=== PATIENT | female | born 1950 | race Caucasian/White ===

== ENCOUNTER 2017-07-02 11:24 | Inpatient (IN) | payer MEDICARE, OTHER ==
[2017-07-02] MEDS ORDERED: Sodium Chloride 0.9% 10 ML Syringe FLUSH PRN (11:50)
[2017-07-02] MEDS ORDERED: Ondansetron 4 MG/2 ML SDV IVPUSH ONE (11:50)
--- NOTE | 2017-07-02 11:53 | EDM.PDOC ---
ED HPI GENERAL MEDICAL PROBLEM - General Chief Complaint: Gastrointestinal Problem Stated Complaint: POST SURGICAL COMPLICATIONS/NAUSEA Time Seen by Provider: 07/02/17 11:40 Source of Information: Reports: Patient History Limitations: Reports: No Limitations - History of Present Illness INITIAL COMMENTS - FREE TEXT/NARRATIVE: Patient is a 66-year-old female who presents ED complaining of nausea and vomiting since 5:00 this morning. Patient awoke abruptly with these symptoms. She's also developed chills with no documented fever. Generalized headache described as a tension-like mild in nature. States she recently had robotic- assisted sacrocolpoplexy this past Friday. States for 3 days has had little to eat. Was discharged home yesterday 1045 am. States they have been in contact with surgeon's [employer] PA-C and was started on Zofran ODT advised to take one tab and if not better take additional tab. Patient has done so but vomited up. She Has tried to eat crackers and soup only to vomited up. She went to no discomfort while at rest. She has felt dizzy and lightheaded at times it resolves quickly. Patient has felt constipated since being discharged. Although she has not been eating much for the past 3 days. Hasn't taken MiraLAX with passing of stool and also gas. No blood present. She has no pain with urination. No chest pain, shortness of breath, cough, sore throat, pain to her lower extremities, or any additional complaints. Patient does not go to the doctor routine basis. Has no additional past medical history. Surgical history: Partial hysterectomy many many years ago. She does not smoke or utilize any recreational drugs. Alcohol use sparingly. Lower Abdominal Pain Score (Numeric/FACES): 3 - Related Data Allergies Allergy/AdvReac Type Severity Reaction Status Date / Time No Known Allergies Allergy Verified 07/02/17 11:39 Home Meds: Home Meds Ondansetron [Zofran ODT] 4 mg PO Q6H PRN 07/02/17 [History] ED ROS GENERAL - Review of Systems Review Of Systems: ROS reveals no pertinent complaints other than HPI. ED EXAM, GI/ABD - Physical Exam Exam: See Below Exam Limited By: No Limitations General Appearance: Alert, WD/WN, No Apparent Distress Ears: Hearing Grossly Normal Nose: Normal Inspection Throat/Mouth: Normal Voice, No Airway Compromise Head: Atraumatic, Normocephalic Neck: Normal Inspection, Supple Respiratory/Chest: No Respiratory Distress, Lungs Clear, Normal Breath Sounds, No Accessory Muscle Use, Chest Non-Tender Cardiovascular: Normal Peripheral Pulses, Regular Rate, Rhythm, No Murmur GI/Abdominal Exam: Normal Bowel Sounds, Soft, No Organomegaly, No Distention, Other (Tenderness to the right lower quadrant where apparent abdominal hernia Area is quite hard, tender to touch since surgery. ) Back Exam: Normal Inspection. No: CVA Tenderness (L), CVA Tenderness (R) Extremities: Normal Range of Motion, Non-Tender, No Pedal Edema, Normal Capillary Refill Neurological: Alert, Oriented, CN II-XII Intact, Normal Cognition, No Motor/ Sensory Deficits Psychiatric: Normal Affect, Normal Mood Skin Exam: Warm, Dry, Intact (5 port sites to the abdomen approxiamted well with dermabond present. NO swelling, redness, and or drainage present. ) Course - Vital Signs Last Recorded V/S: Last Vital Signs Temp 100.4 F 07/02/17 16:50 Pulse 102 H 07/02/17 16:50 Resp 20 07/02/17 16:50 BP 180/97 H 07/02/17 16:50 Pulse Ox 93 L 07/02/17 16:50 Orthostatic Blood Pressure [ 138/103 Standing] Orthostatic Blood Pressure [ 152/93 Supine] - Orders/Labs/Meds Orders: Active Orders 24 hr Category Date Time Status Orthostatic Vital Signs [RC] ASDIRECTED Care 07/02/17 11:50 Active Peripheral IV Care [RC] . DIRECTED Care 07/02/17 11:50 Active CULTURE BLOOD [BC] Stat Lab 07/02/17 12:20 Received CULTURE BLOOD [BC] Stat Lab 07/02/17 12:25 Received UA W/MICROSCOPIC [URIN] Stat Lab 07/02/17 14:30 Ordered Sodium Chloride 0.9% [Saline Flush] Med 07/02/17 11:50 Active 10 ml FLUSH ASDIRECTED PRN Blood Culture x2 Reflex Set [OM.PC] Stat Oth 07/02/17 11:50 Ordered NG [Nasogastric Orogastric Tube Insertion] [OM.PC] Oth 07/02/17 16:49 Ordered Routine Peripheral IV Insertion Adult [OM.PC] Routine Oth 07/02/17 11:50 Ordered Medication Orders Sodium Chloride (Saline Flush) 10 ml FLUSH ASDIRECTED PRN PRN Reason: Keep Vein Open Last Admin: 07/02/17 12:02 Dose: 10 ml Labs: Laboratory Tests 07/02/17 07/02/17 07/02/17 Range/Units 11:50 11:50 12:20 WBC 11.45 H (3.98-10.04) K/mm3 RBC 4.50 (3.98-5.22) M/mm3 Hgb 13.1 (11.2-15.7) gm/L Hct 40.7 (34.1-44.9) % MCV 90.4 (79.4-94.8) fl MCH 29.1 (25.6-32.2) pg MCHC 32.2 (32.2-35.5) g/dl RDW Std Deviation 44.0 (36.4-46.3) fL Plt Count 245 (182-369) K/mm3 MPV 12.2 (9.4-12.3) fl Neutrophils % (Manual) 76 H (40-60) % Band Neutrophils % 0 (0-10) % Lymphocytes % (Manual) 16 L (20-40) % Atypical Lymphs % 0 % Monocytes % (Manual) 8 (2-10) % Eosinophils % (Manual) 0 L (0.7-5.8) % Basophils % (Manual) 0 L (0.1-1.2) Platelet Estimate Adequate Microcytosis 2+ moderate RBC Morph Comment Abnormal Sodium 137 (136-145) mEq/L Potassium 3.5 (3.5-5.1) mEq/L Chloride 99 (98-107) mEq/L Carbon Dioxide 26 (21-32) mEq/L Anion Gap 15.5 H (5-15) BUN 17 (7-18) mg/dL Creatinine 0.8 (0.55-1.02) mg/dL Est Cr Clr Drug Dosing 60.99 mL/min Estimated GFR (MDRD) > 60 (>60) mL/min BUN/Creatinine Ratio 21.3 H (14-18) Glucose 118 H (80-115) mg/dL Lactic Acid 1.0 (0.4-2.0) mmol/L Calcium 9.0 (8.5-10.1) mg/dL Total Bilirubin 0.7 (0.2-1.0) mg/dL AST 19 (15-37) U/L ALT 17 (14-59) U/L Alkaline Phosphatase 78 (46-116) U/L C-Reactive Protein 4.7 H* (<1.0) mg/dL Total Protein 7.8 (6.4-8.2) g/dl Albumin 3.8 (3.4-5.0) g/dl Globulin 4.0 gm/dL Albumin/Globulin Ratio 1.0 (1-2) Urine Color (Yellow) Urine Appearance (Clear) Urine pH (5.0-8.0) Ur Specific [place] (1.005-1.030) Urine Protein (Negative) Urine Glucose (UA) (Negative) Urine Ketones (Negative) Urine Occult Blood (Negative) Urine Nitrite (Negative) Urine Bilirubin (Negative) Urine Urobilinogen (0.2-1.0) Ur Leukocyte Esterase (Negative) Urine RBC (0-5) /hpf Urine WBC (0-5) /hpf Ur Epithelial Cells (0-5) /hpf Urine Bacteria (FEW) /hpf Urine Mucus (FEW) /hpf 07/02/17 Range/Units 14:30 WBC (3.98-10.04) K/mm3 RBC (3.98-5.22) M/mm3 Hgb (11.2-15.7) gm/L Hct (34.1-44.9) % MCV (79.4-94.8) fl MCH (25.6-32.2) pg MCHC (32.2-35.5) g/dl RDW Std Deviation (36.4-46.3) fL Plt Count (182-369) K/mm3 MPV (9.4-12.3) fl Neutrophils % (Manual) (40-60) % Band Neutrophils % (0-10) % Lymphocytes % (Manual) (20-40) % Atypical Lymphs % % Monocytes % (Manual) (2-10) % Eosinophils % (Manual) (0.7-5.8) % Basophils % (Manual) (0.1-1.2) Platelet Estimate Microcytosis RBC Morph Comment Sodium (136-145) mEq/L Potassium (3.5-5.1) mEq/L Chloride (98-107) mEq/L Carbon Dioxide (21-32) mEq/L Anion Gap (5-15) BUN (7-18) mg/dL Creatinine (0.55-1.02) mg/dL Est Cr Clr Drug Dosing mL/min Estimated GFR (MDRD) (>60) mL/min BUN/Creatinine Ratio (14-18) Glucose (80-115) mg/dL Lactic Acid (0.4-2.0) mmol/L Calcium (8.5-10.1) mg/dL Total Bilirubin (0.2-1.0) mg/dL AST (15-37) U/L ALT (14-59) U/L Alkaline Phosphatase (46-116) U/L C-Reactive Protein (<1.0) mg/dL Total Protein (6.4-8.2) g/dl Albumin (3.4-5.0) g/dl Globulin gm/dL Albumin/Globulin Ratio (1-2) Urine Color Yellow (Yellow) Urine Appearance Clear (Clear) Urine pH 6.5 (5.0-8.0) Ur Specific [place] 1.025 (1.005-1.030) Urine Protein 2+ H (Negative) Urine Glucose (UA) Negative (Negative) Urine Ketones 4+ H (Negative) Urine Occult Blood 1+ H (Negative) Urine Nitrite Negative (Negative) Urine Bilirubin 1+ H (Negative) Urine Urobilinogen 0.2 (0.2-1.0) Ur Leukocyte Esterase Negative (Negative) Urine RBC 0-5 (0-5) /hpf Urine WBC 0-5 (0-5) /hpf Ur Epithelial Cells 0-5 (0-5) /hpf Urine Bacteria Few (FEW) /hpf Urine Mucus Few (FEW) /hpf Meds: Medications Generic Name Dose Route Start Last Admin Trade Name Freq PRN Reason Stop Dose Admin Sodium Chloride 10 ml 07/02/17 11:50 07/02/17 12:02 Saline Flush FLUSH 10 ml ASDIRECTED PRN Administration Keep Vein Open Discontinued Medications Generic Name Dose Route Start Last Admin Trade Name Freq PRN Reason Stop Dose Admin Diatrizoate Meglum/Diatrizoate Sod 90 ml 07/02/17 14:54 07/02/17 15:15 Gastrografin 37% PO 07/02/17 14:55 90 ml ONETIME ONE Administration Diphenhydramine HCl 50 mg 07/02/17 13:15 07/02/17 13:22 Benadryl IVPUSH 07/02/17 13:16 50 mg ONETIME ONE Administration Famotidine 40 mg 07/02/17 16:49 07/02/17 17:00 Pepcid IVPUSH 07/02/17 16:50 40 mg ONETIME ONE Administration Promethazine HCl 25 mg/ Sodium 51 mls @ 100 mls/hr 07/02/17 14:34 07/02/17 14 :55 Chloride IV 07/02/17 15:04 100 mls/hr ONETIME ONE Administration Cefoxitin Sodium 2 gm/ Premix 50 mls @ 100 mls/hr 07/02/17 15:38 07/02/17 15: 45 IV 07/02/17 16:07 100 mls/hr ONETIME ONE Administration Iopamidol 100 ml 07/02/17 14:54 07/02/17 15:15 Isovue-300 (61%) IVPUSH 07/02/17 14:55 100 ml ONETIME ONE Administration Metoclopramide HCl 5 mg 07/02/17 12:32 07/02/17 12:35 Reglan IVPUSH 07/02/17 12:33 5 mg ONETIME ONE Administration Metoclopramide HCl 5 mg 07/02/17 13:15 07/02/17 13:20 Reglan IVPUSH 07/02/17 13:16 5 mg ONETIME ONE Administration Ondansetron HCl 4 mg 07/02/17 11:50 07/02/17 12:01 Zofran IVPUSH 07/02/17 11:51 4 mg ONETIME ONE Administration Pantoprazole Sodium 40 mg 07/02/17 16:03 07/02/17 16:18 Protonix Iv IVPUSH 07/02/17 16:04 40 mg ONETIME ONE Administration Scopolamine 1.5 mg 07/02/17 14:33 Transderm-Scop TOP 07/02/17 14:34 ONETIME ONE Sodium Chloride 10 ml 07/02/17 14:54 07/02/17 15:16 Saline Flush FLUSH 07/02/17 14:55 10 ml ONETIME ONE Administration - Re-Assessments/Exams Free Text/Narrative Re-Assessment/Exam: IV established Zofran 4 mg IVP and NS 1liter. Initial labs and studies include: CBC, chem 14, blood cultures 2, lactic acid, UA, with slight vital signs, CRP, and orthostatic vital signs. Orthostatic vital signs came back positive. 07/02/17 12:32 per nursing staff patient continues to vomit even after receiving the Zofran proximal 20 minutes ago. Ordered Reglan 5 mg IVP. 07/02/17 13:15 per nursing staff patient has just returned back from x-ray and is vomiting again. Ordered Reglan 5 mg IVP and also Benadryl 50 mg IVP. 07/02/17 13:55 Reassessment, n/v have slightly subsided with the above therapies. Continues to have pain to the RLQ. Ordered CT of the abdomen/pelvis with oral and IV contrast. Labs reviewed: Sodium 137, potassium 3.5, AG 15.5, creatinine 0.8, glucose 118, lactic acid 1.0, CRP 4.7, white blood cell count mildly elevated lung 0.45, hemoglobin 13.1, platelet count 245, neutrophil percentage 76 with no left shift. He has not been obtained. 07/02/17 14:36 per nursing staff patient got up to the bathroom and feels nauseated. I ordered Phenergan 25 mg IV via gtt. 07/02/17 15:00 Final interpretation of the abdomen: Soft tissue air within the abdominal and chest wall. This is of uncertain etiology. Single air-fluid level within small bowel believe to be incidental. Other incidental findings. Patient attempted to drink oral contrast but is unable to get all of it down. CT of the abdomen and pelvis is pending. CT abdomen and pelvis impression: Right-sided hernia most likely from oral and location containing a loop of small bowel. Inflammatory changes seen within the hernia and findings are highly suspicious for strain related hernia. Difficult to exclude bowel perforation as there is a small amount of air within the hernia sac in this findings may relate to the subcutaneous air being seen within the abdomen. Fluid within the presacral region. Mildly dilated CBD at 1.4 cigarettes which is uncertain at 2 etiology. Anterior abdominal wall hernia containing fat. Other incidental findings. Order cefoxitin 2 g IV. Discussed labs and CT findings with the patient. She has opted to consult Dr. Li on-call general surgeon for evaluation and treatment. 07/02/[id number] Li he is currently in surgery and will call back. 07/02/[address] Li has arrived to the E.D. and evaluated the patient. Patient will be having surgery here. Dr. Li has called in OR Staff. Departure - Departure Time of Disposition: 15:35 Disposition: DC/Tfer to Critical Access 66 Condition: Fair Clinical Impression: Strangulation of small intestine, Femoral hernia of right side Protein in urine Qualifiers: Proteinuria type: unspecified Qualified Code(s): R80.9 - Proteinuria, unspecified Blood in urine Qualifiers: Hematuria type: unspecified type Qualified Code(s): R31.9 - Hematuria, unspecified - Discharge Information - My Orders Last 24 Hours: My Active Orders 07/02/17 11:50 Orthostatic Vital Signs [RC] ASDIRECTED Peripheral IV Care [RC] . DIRECTED Sodium Chloride 0.9% [Saline Flush] 10 ml FLUSH ASDIRECTED PRN Blood Culture x2 Reflex Set [OM.PC] Stat Peripheral IV Insertion Adult [OM.PC] Routine 07/02/17 12:20 CULTURE BLOOD [BC] Stat 07/02/17 12:25 CULTURE BLOOD [BC] Stat 07/02/17 14:30 UA W/MICROSCOPIC [URIN] Stat 07/02/17 16:49 NG [Nasogastric Orogastric Tube Insertion] [OM.PC] Routine - Assessment/Plan Last 24 Hours: My Active Orders 07/02/17 11:50 Orthostatic Vital Signs [RC] ASDIRECTED Peripheral IV Care [RC] . DIRECTED Sodium Chloride 0.9% [Saline Flush] 10 ml FLUSH ASDIRECTED PRN Blood Culture x2 Reflex Set [OM.PC] Stat Peripheral IV Insertion Adult [OM.PC] Routine 07/02/17 12:20 CULTURE BLOOD [BC] Stat 07/02/17 12:25 CULTURE BLOOD [BC] Stat 07/02/17 14:30 UA W/MICROSCOPIC [URIN] Stat 07/02/17 16:49 NG [Nasogastric Orogastric Tube Insertion] [OM.PC] Routine
[2017-07-02] MEDS ORDERED: Metoclopramide 10 MG/2 ML SDV IVPUSH ONE ×2 (12:32→13:15)
[2017-07-02] MEDS ORDERED: diphenhydrAMINE 50 MG/ML SDV IVPUSH ONE (13:15)
[2017-07-02] MEDS ORDERED: Scopolamine 1.5 MG Transdermal Patch TOP ONE (14:33)
[2017-07-02] MEDS ORDERED: Promethazine 25 MG in Sodium Chloride 0.9% 50 ML IV ONE (14:34)
--- NOTE | 2017-07-02 14:49 | CR ---
Abdomen: Supine and upright views of the abdomen were obtained. Comparison: No previous study. Air-fluid level is seen within a single small bowel loop which is felt at this point to remain within normal limits. Scattered colonic gas is seen. Soft tissue air is noted within the abdominal and chest wall of uncertain etiology. Degenerative change is noted within the spine. No abnormal calcifications are seen. Impression: 1. Soft tissue air within the abdominal and chest wall. This is of uncertain etiology. 2. Single air-fluid level within small bowel believed to be incidental. 3. Other incidental findings. Diagnostic code #3
[2017-07-02] MEDS ORDERED: Diatrizoate Meglumine/Diatrizoate Sodium 37% 120 ML Bottle PO ONE (14:54)
[2017-07-02] MEDS ORDERED: Sodium Chloride 0.9% 10 ML Syringe FLUSH ONE (14:54)
[2017-07-02] MEDS ORDERED: Iopamidol 612 MG/ML 100 ML Bottle IVPUSH ONE (14:54)
--- NOTE | 2017-07-02 15:29 | CT ---
CT abdomen and pelvis Technique: Multiple axial sections were obtained from above the dome of the diaphragm inferiorly through the pubic symphysis. Intravenous contrast was utilized. Oral contrast is seen but contrast mostly remains within the stomach. Delayed images also obtained through the abdomen and pelvis. Comparison: No prior CT exam, previous abdominal and pelvic x-ray performed earlier on the same day (12:49 PM). Findings: Visualized lung bases shows nothing acute. Diffuse subcutaneous air seen throughout the abdomen. Liver shows no focal parenchymal abnormality. Small hiatal hernia is seen with gastroesophageal reflux of contrast. Spleen appears within normal limits. Adrenal glands show no nodule. Kidneys show symmetric contrast enhancement without hydronephrosis or mass. Gallbladder contains no calcified gallstones. Common bile duct is mildly prominent in size at 1.4 cm. etiology of this finding is not seen on the study. Pancreas appears within normal limits. Aorta shows minimal atherosclerotic calcification without aneurysm. Anterior abdominal wall hernia seen which contains fat. Hazy soft tissue densities are seen along both lateral sides of the abdomen as well as anteriorly. Right sided hernia is seen most likely femoral which contains a loop of small bowel. More proximal small bowel appears dilated. Increased density is seen within the fat within the hernia. Findings are suspicious for strangulated hernia. Fluid is seen within the pre-sacral region. Delayed images shows contrast within the ureters and bladder. Bone window settings were reviewed which shows degenerative change primarily at L2-3 and L3-L4 with disc space narrowing and vacuum phenomena. Impression: 1. Right sided hernia most likely femoral in location containing a loop of small bowel. Inflammatory change is seen within the hernia and findings are highly suspicious for strangulated hernia. Difficult to exclude bowel perforation as there is a small amount of air within the hernia sac and this finding may relate to the subcutaneous air being seen within the abdomen. 2. Fluid within the presacral region. 3. Mildly dilated CBD at 1.4 cm which is uncertain as to etiology. 4. Anterior abdominal wall hernia containing fat. 5. Other incidental findings. Diagnostic code #5
[2017-07-02] MEDS ORDERED: cefOXitin 2 GM in Premix Bag 1 BAG IV ONE (15:38)
[2017-07-02] MEDS ORDERED: Pantoprazole 40 MG Vial IVPUSH ONE (16:03)
[2017-07-02] MEDS ORDERED: Famotidine 20 MG/2 ML SDV IVPUSH ONE (16:49)
[2017-07-02] MEDS ORDERED: Sodium Chloride 0.9% 1,000 ML IV SCH (17:45)
[2017-07-02] MEDS ORDERED: Propofol 200 MG/20 ML SDV ONE (17:55)
[2017-07-02] MEDS ORDERED: fentaNYL 250 MCG/5 ML SDV ONE (17:55)
[2017-07-02] MEDS ORDERED: Midazolam 1 MG/ML 2 ML SDV ONE (17:55)
[2017-07-02] MEDS ORDERED: Succinylcholine/Normal Saline 100 MG/5 ML Syringe ONE (17:58)
[2017-07-02] MEDS ORDERED: Dexamethasone 4 MG/ML 5 ML MDV ONE (17:58)
[2017-07-02] MEDS ORDERED: Rocuronium 50 MG/5 ML Vial ONE (17:58)
[2017-07-02] MEDS ORDERED: Lidocaine 1% 4 ML ONE (17:58)
[2017-07-02] MEDS ORDERED: Ondansetron 4 MG/2 ML SDV ONE (17:58)
--- NOTE | 2017-07-02 18:12 | PCM.PREANE ---
Preanesthetic Assessment - Procedure Proposed Procedure: Incarcerated femoral hernia repair - Anesthesia/Transfusion/Family Hx Anesthesia History: Prior Anesthesia Without Reaction Family History of Anesthesia Reaction: No Transfusion History: No Prior Transfusion(s) Intubation History: Unknown Additional History: Denies any medical conditions - Review of Systems General: No Symptoms Pulmonary: No Symptoms Cardiovascular: No Symptoms Gastrointestinal: No Symptoms Neurological: No Symptoms Other: Reports: None - Physical Assessment NPO Status Date: 07/02/17 NPO Status Time: 08:00 O2 Sat by Pulse Oximetry: 93 Respiratory Rate: 20 Vital Signs: Last Vital Signs Temp 38.2 C H 07/02/17 17:10 Pulse 102 H 07/02/17 16:50 Resp 20 07/02/17 16:50 BP 180/97 H 07/02/17 16:50 Pulse Ox 93 L 07/02/17 16:50 Orthostatic Blood Pressure [ 138/103 Standing] Orthostatic Blood Pressure [ 152/93 Supine] Height: 1.64 m Weight: 76.657 kg ASA Class: 2E Mental Status: Alert & Oriented x3 Dentition: Reports: Normal Dentition Thyro-Mental Finger Breadths: 3 Mouth Opening Finger Breadths: 3 ROM/Head Extension: Full Lungs: Clear to Auscultation, Normal Respiratory Effort Cardiovascular: Regular Rate, Regular Rhythm, Murmurs (slight systolic heart murmer- patient has been told this before ) - Lab Values: Laboratory Last Values WBC 11.45 K/mm3 (3.98-10.04) H 07/02/17 11:50 RBC 4.50 M/mm3 (3.98-5.22) 07/02/17 11:50 Hgb 13.1 gm/L (11.2-15.7) 07/02/17 11:50 Hct 40.7 % (34.1-44.9) 07/02/17 11:50 MCV 90.4 fl (79.4-94.8) 07/02/17 11:50 MCH 29.1 pg (25.6-32.2) 07/02/17 11:50 MCHC 32.2 g/dl (32.2-35.5) 07/02/17 11:50 RDW Std Deviation 44.0 fL (36.4-46.3) 07/02/17 11:50 Plt Count 245 K/mm3 (182-369) 07/02/17 11:50 MPV 12.2 fl (9.4-12.3) 07/02/17 11:50 Neutrophils % (Manual) 76 % (40-60) H 07/02/17 11:50 Band Neutrophils % 0 % (0-10) 07/02/17 11:50 Lymphocytes % (Manual) 16 % (20-40) L 07/02/17 11:50 Atypical Lymphs % 0 % 07/02/17 11:50 Monocytes % (Manual) 8 % (2-10) 07/02/17 11:50 Eosinophils % (Manual) 0 % (0.7-5.8) L 07/02/17 11:50 Basophils % (Manual) 0 (0.1-1.2) L 07/02/17 11:50 Platelet Estimate Adequate 07/02/17 11:50 Microcytosis 2+ moderate 07/02/17 11:50 RBC Morph Comment Abnormal 07/02/17 11:50 Sodium 137 mEq/L (136-145) 07/02/17 11:50 Potassium 3.5 mEq/L (3.5-5.1) 07/02/17 11:50 Chloride 99 mEq/L (98-107) 07/02/17 11:50 Carbon Dioxide 26 mEq/L (21-32) 07/02/17 11:50 Anion Gap 15.5 (5-15) H 07/02/17 11:50 BUN 17 mg/dL (7-18) 07/02/17 11:50 Creatinine 0.8 mg/dL (0.55-1.02) 07/02/17 11:50 Est Cr Clr Drug Dosing 60.99 mL/min 07/02/17 11:50 Estimated GFR (MDRD) > 60 mL/min (>60) 07/02/17 11:50 BUN/Creatinine Ratio 21.3 (14-18) H 07/02/17 11:50 Glucose 118 mg/dL (80-115) H 07/02/17 11:50 Lactic Acid 1.0 mmol/L (0.4-2.0) 07/02/17 12:20 Calcium 9.0 mg/dL (8.5-10.1) 07/02/17 11:50 Total Bilirubin 0.7 mg/dL (0.2-1.0) 07/02/17 11:50 AST 19 U/L (15-37) 07/02/17 11:50 ALT 17 U/L (14-59) 07/02/17 11:50 Alkaline Phosphatase 78 U/L (46-116) 07/02/17 11:50 C-Reactive Protein 4.7 mg/dL (<1.0) H* 07/02/17 11:50 Total Protein 7.8 g/dl (6.4-8.2) 07/02/17 11:50 Albumin 3.8 g/dl (3.4-5.0) 07/02/17 11:50 Globulin 4.0 gm/dL 07/02/17 11:50 Albumin/Globulin Ratio 1.0 (1-2) 07/02/17 11:50 Urine Color Yellow (Yellow) 07/02/17 14:30 Urine Appearance Clear (Clear) 07/02/17 14:30 Urine pH 6.5 (5.0-8.0) 07/02/17 14:30 Ur Specific [place] 1.025 (1.005-1.030) 07/02/17 14:30 Urine Protein 2+ (Negative) H 07/02/17 14:30 Urine Glucose (UA) Negative (Negative) 07/02/17 14:30 Urine Ketones 4+ (Negative) H 07/02/17 14:30 Urine Occult Blood 1+ (Negative) H 07/02/17 14:30 Urine Nitrite Negative (Negative) 07/02/17 14:30 Urine Bilirubin 1+ (Negative) H 07/02/17 14:30 Urine Urobilinogen 0.2 (0.2-1.0) 07/02/17 14:30 Ur Leukocyte Esterase Negative (Negative) 07/02/17 14:30 Urine RBC 0-5 /hpf (0-5) 07/02/17 14:30 Urine WBC 0-5 /hpf (0-5) 07/02/17 14:30 Ur Epithelial Cells 0-5 /hpf (0-5) 07/02/17 14:30 Urine Bacteria Few /hpf (FEW) 07/02/17 14:30 Urine Mucus Few /hpf (FEW) 07/02/17 14:30 - Allergies Allergies/Adverse Reactions: Allergies Allergy/AdvReac Type Severity Reaction Status Date / Time No Known Allergies Allergy Verified 07/02/17 11:39 - Blood Blood Available: No Product(s) Available: None - Anesthesia Plan Pre-Op Medication Ordered: None - Acknowledgements Anesthesia Type Planned: General Anesthesia Pt an Appropriate Candidate for the Planned Anesthesia: Yes Alternatives and Risks of Anesthesia Discussed w Pt/Guardian: Yes Pt/Guardian Understands and Agrees with Anesthesia Plan: Yes PreAnesthesia Questionnaire - Past Surgical History GI Surgical History: Reports: Hernia, Abdominal Female Surgical History: Reports: Other (See Below) Other Female Surgeries/Procedures: repair of pelvic organ prolapse - SUBSTANCE USE Smoking Status *Q: Never Smoker Recreational Drug Use History: No - HOME MEDS Home Medications: Home Meds Ondansetron [Zofran ODT] 4 mg PO Q6H PRN 07/02/17 [History] - CURRENT (IN HOUSE) MEDS Current Meds: Current Medications Sodium Chloride (Normal Saline) 1,000 mls @ 150 mls/hr IV ASDIRECTED ILIR Sodium Chloride (Saline Flush) 10 ml FLUSH ASDIRECTED PRN PRN Reason: Keep Vein Open Last Admin: 07/02/17 12:02 Dose: 10 ml Discontinued Medications Dexamethasone (Dexamethasone) Confirm Administered Dose 20 mg .ROUTE .STK-MED ONE Stop: 07/02/17 17:59 Diatrizoate Meglum/Diatrizoate Sod (Gastrografin 37%) 90 ml PO ONETIME ONE Stop: 07/02/17 14:55 Last Admin: 07/02/17 15:15 Dose: 90 ml Diphenhydramine HCl (Benadryl) 50 mg IVPUSH ONETIME ONE Stop: 07/02/17 13:16 Last Admin: 07/02/17 13:22 Dose: 50 mg Famotidine (Pepcid) 40 mg IVPUSH ONETIME ONE Stop: 07/02/17 16:50 Last Admin: 07/02/17 17:00 Dose: 40 mg Fentanyl (Sublimaze) Confirm Administered Dose 250 mcg .ROUTE .STK-MED ONE Stop: 07/02/17 17:56 Promethazine HCl 25 mg/ Sodium (Chloride) 51 mls @ 100 mls/hr IV ONETIME ONE Stop: 07/02/17 15:04 Last Admin: 07/02/17 14:55 Dose: 100 mls/hr Cefoxitin Sodium 2 gm/ Premix 50 mls @ 100 mls/hr IV ONETIME ONE Stop: 07/02/17 16:07 Last Admin: 07/02/17 15:45 Dose: 100 mls/hr Lidocaine HCl (Xylocaine-Mpf 1%) Confirm Administered Dose 4 mls @ as directed .ROUTE .STK-MED ONE Stop: 07/02/17 17:59 Iopamidol (Isovue-300 (61%)) 100 ml IVPUSH ONETIME ONE Stop: 07/02/17 14:55 Last Admin: 07/02/17 15:15 Dose: 100 ml Metoclopramide HCl (Reglan) 5 mg IVPUSH ONETIME ONE Stop: 07/02/17 12:33 Last Admin: 07/02/17 12:35 Dose: 5 mg Metoclopramide HCl (Reglan) 5 mg IVPUSH ONETIME ONE Stop: 07/02/17 13:16 Last Admin: 07/02/17 13:20 Dose: 5 mg Midazolam HCl (Versed 1 Mg/Ml) Confirm Administered Dose 2 mg .ROUTE .STK-MED ONE Stop: 07/02/17 17:56 Ondansetron HCl (Zofran) 4 mg IVPUSH ONETIME ONE Stop: 07/02/17 11:51 Last Admin: 07/02/17 12:01 Dose: 4 mg Ondansetron HCl (Zofran) Confirm Administered Dose 4 mg .ROUTE .STK-MED ONE Stop: 07/02/17 17:59 Pantoprazole Sodium (Protonix Iv) 40 mg IVPUSH ONETIME ONE Stop: 07/02/17 16:04 Last Admin: 07/02/17 16:18 Dose: 40 mg Propofol (Diprivan 20 Ml) Confirm Administered Dose 200 mg .ROUTE .STK-MED ONE Stop: 07/02/17 17:56 Rocuronium [place] (Zemuron) Confirm Administered Dose 50 mg .ROUTE .STK-MED ONE Stop: 07/02/17 17:59 Scopolamine (Transderm-Scop) 1.5 mg TOP ONETIME ONE Stop: 07/02/17 14:34 Sodium Chloride (Saline Flush) 10 ml FLUSH ONETIME ONE Stop: 07/02/17 14:55 Last Admin: 07/02/17 15:16 Dose: 10 ml Succinylcholine Chloride (Succinylcholine In Ns Pf) Confirm Administered Dose 100 mg .ROUTE .[facility] ONE Stop: 07/02/17 17:59
[2017-07-02] MEDS ORDERED: Phenylephrine/Normal Saline 100 MCG/ML 10 ML Syringe ONE (18:41)
[2017-07-02] MEDS ORDERED: Ondansetron 4 MG/2 ML SDV IVPUSH PRN ×2 (19:07→19:56)
[2017-07-02] MEDS ORDERED: diphenhydrAMINE 50 MG/ML SDV IVPUSH PRN (19:07)
[2017-07-02] MEDS ORDERED: fentaNYL 100 MCG/2 ML SDV IVPUSH PRN (19:07)
[2017-07-02] MEDS ORDERED: Meperidine PF 50 MG/ML Syringe IVPUSH PRN (19:07)
[2017-07-02] MEDS ORDERED: HYDROmorphone 0.5 MG/0.5 ML Syringe IVPUSH ONE (19:07)
[2017-07-02] MEDS ORDERED: Lactated Ringers 1,000 ML ONE ×2 (19:09)
--- NOTE | 2017-07-02 19:49 | PCM.OPNOTE ---
- General Post-Op/Procedure Note Date of Surgery/Procedure: 07/02/17 Operative Procedure(s): repair of femoral hernia and reduction of small bowel Pre Op Diagnosis: incacerated right femoral hernia with sbo Post-Op Diagnosis: Same Anesthesia Technique: General ET Tube Primary Surgeon: Charles Li EBL in mLs: 20 Complications: None Condition: Good
[2017-07-02] MEDS ORDERED: Morphine 10 MG/ML Syringe IVPUSH PRN (19:54)
--- NOTE | 2017-07-02 20:00 | PCM.POSTAN ---
POST ANESTHESIA ASSESSMENT - MENTAL STATUS Mental Status: Alert, Oriented - VITAL SIGNS Pulse Rate: 97 SaO2: 95 Resp Rate: 19 Blood Pressure: 146/82 Temperature: 100.8 C - RESPIRATORY Respiratory Status: Respiratory Rate WNL, Airway Patent, O2 Saturation Stable, Supplemental Oxygen - CARDIOVASCULAR CV Status: Pulse Rate WNL, Blood Pressure Stable - GASTROINTESTINAL GI Status: No Symptoms - PAIN Pain Score: 0 - POST OP HYDRATION Hydration Status: Adequate & Stable
[2017-07-02] MEDS ORDERED: HYDROmorphone 0.5 MG/0.5 ML SYRINGE IVPUSH PRN (22:19)
[2017-07-02] MEDS: Lactated Ringers 1,000 ML IV SCH (22:41)
[2017-07-02] MEDS ORDERED: HYDROmorphone 0.5 MG/0.5 ML SYRINGE IV PRN (22:48)
[2017-07-03] MEDS: Lactated Ringers 1,000 ML IV SCH ×3 (06:19→22:02)
--- NOTE | 2017-07-03 07:28 | HP ---
DATE OF ADMISSION: 07/02/2017 HISTORY OF PRESENT ILLNESS: A 66-year-old woke up this morning about 5 o'clock with nausea and vomiting, came into the clinic and found to have a small-bowel obstruction secondary to a right incarcerated femoral hernia. She states she has had this femoral hernia for sometime, but has not acted on it and she states in fact her dad had a femoral hernia. A CT scan was then done showing incarcerated femoral hernia, possible compromise of the small-bowel. The patient on Friday had a pelvic sling done laparoscopically in [place] and was discharged yesterday. PAST MEDICAL HISTORY: Good health. ALLERGIES: None known. REVIEW OF SYSTEMS: Other than nausea and vomiting, some pain in the right groin is negative. No chest pain, shortness of breath, cough, hoarseness, wheezing, fainting, weakness, numbness, or convulsions. FAMILY HISTORY: Father had brain cancer and a femoral hernia. SOCIAL HISTORY: No smoking. No drinking. PHYSICAL EXAMINATION: VITAL SIGNS: Show a temperature of 100.8, blood pressure 161/98, and a pulse is 113. GENERAL: Reveals alert and cooperative female. EYES: Sclerae white. Extraocular muscle motion normal. ORAL CAVITY: Healthy buccal membranes roof of the mouth and tongue. NECK: Supple. No nodes. No thyromegaly. Trachea midline. LUNGS: Clear. No rales, rhonchi, fremitus, or dullness. HEART: Heart tones shows sinus tachycardia. ABDOMEN: Soft. No tenderness, guarding, or rebound. Surgical incisions noted just from laparoscopic work. Inguinal region shows swelling and tenderness in the right inguinal area consistent with a femoral hernia. EXTREMITIES: Upper and lower extremities, no angulation deformities. NEUROLOGIC: Normal. Cranial nerves 3 through 12 intact. SKIN: Warm and dry. PSYCHIATRIC: Normal. LABORATORY DATA: White count is 11,000; hemoglobin 13; platelet count is normal. CMP is normal other than C-reactive protein is 4.7. ASSESSMENT: Incarcerated right femoral hernia with possibility of incarcerated small-bowel and compromise and needs emergency surgery for decompression of the femoral hernia with possible repair of small-bowel and/or resection. Discussed this with the patient, the risks and complications, and she understands. MMODAL /[id number]
--- NOTE | 2017-07-03 07:36 | OR ---
DATE OF OPERATION: 07/02/2017 SURGEON: Charles Li MD PREOPERATIVE DIAGNOSIS: Incarcerated femoral hernia. POSTOPERATIVE DIAGNOSIS: Incarcerated femoral hernia. OPERATION PERFORMED: Romeo type repair of femoral hernia and reduction of incarcerated bowel. ANESTHESIA: General. FINDINGS: Loop of bowel twisted in the femoral hernia that admitted 2 fingers. The bowel had erythema, but no necrotic spots on the antimesenteric border and Doppler showed good pulsatile flow in the marginal arteries. ESTIMATED BLOOD LOSS: Approximately 20 mL. DESCRIPTION OF PROCEDURE: The patient was taken to the operating room, placed in a supine position, connected to monitoring equipment, given a general anesthetic, and intubated. SCDs were placed. The abdomen and right inguinal region were prepped with Betadine scrubbing solution, draped off in a sterile fashion. Antibiotics had been given in the ER. The transverse incision was made over the femoral hernia and carried down by sharp dissection to the neck. A self-retaining retractor was replaced. The hernia sac was opened and old blood came out as described above. A small incision in the inguinal ligament allowed more room and the incarcerated hernia was released. Prior to being placed in the abdominal cavity, it was watched, it pinked up, and Doppler was done showing good flow to the small bowel. This was then reduced and Romeo hernia was then done using 0 Ethibond and bringing the inguinal ligament down to Bakari's ligament with a series of 3-0 Ethibond sutures. A transition suture was then placed next to the fascia in the femoral vein taking care to preserve the integrity of the femoral vein. These were then tied. Good repair was accomplished. Soft tissue was then brought together with interrupted 3-0 Vicryl suture after securing excellent hemostasis and the dermis brought together with interrupted 3-0 Vicryl suture and the skin closed with subdermal 4-0 Dexon suture. Steri-Strips and sterile dressing placed. The patient tolerated the procedure and sent to recovery room in a stable condition. MMODAL /[id number]
[2017-07-03] MEDS ORDERED: Ibuprofen 600 MG Tab PO PRN (09:27)
--- NOTE | 2017-07-03 09:32 | PCM.SURGPN ---
- General Info Date of Service: 07/03/17 POD#: 1 Functional Status: Reports: Pain Controlled - Review of Systems General: Reports: No Symptoms Pulmonary: Reports: No Symptoms Cardiovascular: Reports: No Symptoms Gastrointestinal: Reports: No Symptoms - Patient Data Vitals - Most Recent: Last Vital Signs Temp 99.7 F 07/03/17 00:00 Pulse 85 07/03/17 04:22 Resp 18 07/03/17 04:22 BP 152/84 H 07/03/17 04:29 Pulse Ox 95 07/03/17 04:22 Orthostatic Blood Pressure [ 138/103 Standing] Orthostatic Blood Pressure [ 152/93 Supine] Weight - Most Recent: 76.657 kg I&O - Last 24 Hours: Intake & Output 07/02/17 07/03/17 07/03/17 23:59 07:59 15:59 Intake Total 1806 Output Total 505 Balance 1301 Lab Results Last 24 Hrs: Laboratory Results - last 24 hr 07/02/17 07/02/17 07/02/17 Range/Units 11:50 11:50 12:20 WBC 11.45 H (3.98-10.04) K/mm3 RBC 4.50 (3.98-5.22) M/mm3 Hgb 13.1 (11.2-15.7) gm/L Hct 40.7 (34.1-44.9) % MCV 90.4 (79.4-94.8) fl MCH 29.1 (25.6-32.2) pg MCHC 32.2 (32.2-35.5) g/dl RDW Std Deviation 44.0 (36.4-46.3) fL Plt Count 245 (182-369) K/mm3 MPV 12.2 (9.4-12.3) fl Neutrophils % (Manual) 76 H (40-60) % Band Neutrophils % 0 (0-10) % Lymphocytes % (Manual) 16 L (20-40) % Atypical Lymphs % 0 % Monocytes % (Manual) 8 (2-10) % Eosinophils % (Manual) 0 L (0.7-5.8) % Basophils % (Manual) 0 L (0.1-1.2) Platelet Estimate Adequate Microcytosis 2+ moderate RBC Morph Comment Abnormal Sodium 137 (136-145) mEq/L Potassium 3.5 (3.5-5.1) mEq/L Chloride 99 (98-107) mEq/L Carbon Dioxide 26 (21-32) mEq/L Anion Gap 15.5 H (5-15) BUN 17 (7-18) mg/dL Creatinine 0.8 (0.55-1.02) mg/dL Est Cr Clr Drug Dosing 60.99 mL/min Estimated GFR (MDRD) > 60 (>60) mL/min BUN/Creatinine Ratio 21.3 H (14-18) Glucose 118 H (80-115) mg/dL Lactic Acid 1.0 (0.4-2.0) mmol/L Calcium 9.0 (8.5-10.1) mg/dL Total Bilirubin 0.7 (0.2-1.0) mg/dL AST 19 (15-37) U/L ALT 17 (14-59) U/L Alkaline Phosphatase 78 (46-116) U/L C-Reactive Protein 4.7 H* (<1.0) mg/dL Total Protein 7.8 (6.4-8.2) g/dl Albumin 3.8 (3.4-5.0) g/dl Globulin 4.0 gm/dL Albumin/Globulin Ratio 1.0 (1-2) Urine Color (Yellow) Urine Appearance (Clear) Urine pH (5.0-8.0) Ur Specific [place] (1.005-1.030) Urine Protein (Negative) Urine Glucose (UA) (Negative) Urine Ketones (Negative) Urine Occult Blood (Negative) Urine Nitrite (Negative) Urine Bilirubin (Negative) Urine Urobilinogen (0.2-1.0) Ur Leukocyte Esterase (Negative) Urine RBC (0-5) /hpf Urine WBC (0-5) /hpf Ur Epithelial Cells (0-5) /hpf Urine Bacteria (FEW) /hpf Urine Mucus (FEW) /hpf 07/02/17 Range/Units 14:30 WBC (3.98-10.04) K/mm3 RBC (3.98-5.22) M/mm3 Hgb (11.2-15.7) gm/L Hct (34.1-44.9) % MCV (79.4-94.8) fl MCH (25.6-32.2) pg MCHC (32.2-35.5) g/dl RDW Std Deviation (36.4-46.3) fL Plt Count (182-369) K/mm3 MPV (9.4-12.3) fl Neutrophils % (Manual) (40-60) % Band Neutrophils % (0-10) % Lymphocytes % (Manual) (20-40) % Atypical Lymphs % % Monocytes % (Manual) (2-10) % Eosinophils % (Manual) (0.7-5.8) % Basophils % (Manual) (0.1-1.2) Platelet Estimate Microcytosis RBC Morph Comment Sodium (136-145) mEq/L Potassium (3.5-5.1) mEq/L Chloride (98-107) mEq/L Carbon Dioxide (21-32) mEq/L Anion Gap (5-15) BUN (7-18) mg/dL Creatinine (0.55-1.02) mg/dL Est Cr Clr Drug Dosing mL/min Estimated GFR (MDRD) (>60) mL/min BUN/Creatinine Ratio (14-18) Glucose (80-115) mg/dL Lactic Acid (0.4-2.0) mmol/L Calcium (8.5-10.1) mg/dL Total Bilirubin (0.2-1.0) mg/dL AST (15-37) U/L ALT (14-59) U/L Alkaline Phosphatase (46-116) U/L C-Reactive Protein (<1.0) mg/dL Total Protein (6.4-8.2) g/dl Albumin (3.4-5.0) g/dl Globulin gm/dL Albumin/Globulin Ratio (1-2) Urine Color Yellow (Yellow) Urine Appearance Clear (Clear) Urine pH 6.5 (5.0-8.0) Ur Specific [place] 1.025 (1.005-1.030) Urine Protein 2+ H (Negative) Urine Glucose (UA) Negative (Negative) Urine Ketones 4+ H (Negative) Urine Occult Blood 1+ H (Negative) Urine Nitrite Negative (Negative) Urine Bilirubin 1+ H (Negative) Urine Urobilinogen 0.2 (0.2-1.0) Ur Leukocyte Esterase Negative (Negative) Urine RBC 0-5 (0-5) /hpf Urine WBC 0-5 (0-5) /hpf Ur Epithelial Cells 0-5 (0-5) /hpf Urine Bacteria Few (FEW) /hpf Urine Mucus Few (FEW) /hpf Med Orders - Current: Current Medications Lactated Ringer's (Ringers, Lactated) 1,000 mls @ 50 mls/hr IV ASDIRECTED ILIR Ibuprofen (Motrin) 600 mg PO QID PRN PRN Reason: Pain Ondansetron HCl (Zofran) 4 mg IVPUSH Q8H PRN PRN Reason: Nausea Sodium Chloride (Saline Flush) 10 ml FLUSH ASDIRECTED PRN PRN Reason: Keep Vein Open Last Admin: 07/02/17 12:02 Dose: 10 ml Discontinued Medications Dexamethasone (Dexamethasone) Confirm Administered Dose 20 mg .ROUTE .STK-MED ONE Stop: 07/02/17 17:59 Diatrizoate Meglum/Diatrizoate Sod (Gastrografin 37%) 90 ml PO ONETIME ONE Stop: 07/02/17 14:55 Last Admin: 07/02/17 15:15 Dose: 90 ml Diphenhydramine HCl (Benadryl) 50 mg IVPUSH ONETIME ONE Stop: 07/02/17 13:16 Last Admin: 07/02/17 13:22 Dose: 50 mg Diphenhydramine HCl (Benadryl) 25 mg IVPUSH Q6H PRN PRN Reason: Pruritis Famotidine (Pepcid) 40 mg IVPUSH ONETIME ONE Stop: 07/02/17 16:50 Last Admin: 07/02/17 17:00 Dose: 40 mg Fentanyl (Sublimaze) Confirm Administered Dose 250 mcg .ROUTE .STK-MED ONE Stop: 07/02/17 17:56 Fentanyl (Sublimaze) 50 mcg IVPUSH Q5M PRN PRN Reason: Pain Hydromorphone HCl (Dilaudid) 0.5 mg IVPUSH ONETIME ONE Stop: 07/02/17 19:08 Hydromorphone HCl (Dilaudid) 0.5 mg IVPUSH Q2HR PRN PRN Reason: Pain Hydromorphone HCl (Dilaudid) 0.5 mg IV Q1H PRN PRN Reason: Pain Promethazine HCl 25 mg/ Sodium (Chloride) 51 mls @ 100 mls/hr IV ONETIME ONE Stop: 07/02/17 15:04 Last Admin: 07/02/17 14:55 Dose: 100 mls/hr Cefoxitin Sodium 2 gm/ Premix 50 mls @ 100 mls/hr IV ONETIME ONE Stop: 07/02/17 16:07 Last Admin: 07/02/17 15:45 Dose: 100 mls/hr Sodium Chloride (Normal Saline) 1,000 mls @ 150 mls/hr IV ASDIRECTED ILIR Lidocaine HCl (Xylocaine-Mpf 1%) Confirm Administered Dose 4 mls @ as directed .ROUTE .STK-MED ONE Stop: 07/02/17 17:59 Lactated Ringer's (Ringers, Lactated) Confirm Administered Dose 1,000 mls @ as directed .ROUTE .STK-MED ONE Stop: 07/02/17 19:10 Lactated Ringer's (Ringers, Lactated) Confirm Administered Dose 1,000 mls @ as directed .ROUTE .STK-MED ONE Stop: 07/02/17 19:10 Lactated Ringer's (Ringers, Lactated) 1,000 mls @ 125 mls/hr IV ASDIRECTED [facility] Last Admin: 07/03/17 06:19 Dose: 125 mls/hr Iopamidol (Isovue-300 (61%)) 100 ml IVPUSH ONETIME ONE Stop: 07/02/17 14:55 Last Admin: 07/02/17 15:15 Dose: 100 ml Meperidine HCl (Demerol) 12.5 mg IVPUSH ONETIME PRN PRN Reason: Shivering Metoclopramide HCl (Reglan) 5 mg IVPUSH ONETIME ONE Stop: 07/02/17 12:33 Last Admin: 07/02/17 12:35 Dose: 5 mg Metoclopramide HCl (Reglan) 5 mg IVPUSH ONETIME ONE Stop: 07/02/17 13:16 Last Admin: 07/02/17 13:20 Dose: 5 mg Midazolam HCl (Versed 1 Mg/Ml) Confirm Administered Dose 2 mg .ROUTE .STK-MED ONE Stop: 07/02/17 17:56 Morphine Sulfate (Morphine) 5 mg IVPUSH Q2H PRN PRN Reason: Pain Ondansetron HCl (Zofran) 4 mg IVPUSH ONETIME ONE Stop: 07/02/17 11:51 Last Admin: 07/02/17 12:01 Dose: 4 mg Ondansetron HCl (Zofran) Confirm Administered Dose 4 mg .ROUTE .STK-MED ONE Stop: 07/02/17 17:59 Ondansetron HCl (Zofran) 4 mg IVPUSH ONETIME PRN PRN Reason: Nausea/Vomiting Pantoprazole Sodium (Protonix Iv) 40 mg IVPUSH ONETIME ONE Stop: 07/02/17 16:04 Last Admin: 07/02/17 16:18 Dose: 40 mg Phenylephrine HCl (Phenylephrine In Ns 100 Mcg/Ml) Confirm Administered Dose 1 mg .ROUTE .STK-MED ONE Stop: 07/02/17 18:42 Propofol (Diprivan 20 Ml) Confirm Administered Dose 200 mg .ROUTE .STK-MED ONE Stop: 07/02/17 17:56 Rocuronium Speonk (Zemuron) Confirm Administered Dose 50 mg .ROUTE .STK-MED ONE Stop: 07/02/17 17:59 Scopolamine (Transderm-Scop) 1.5 mg TOP ONETIME ONE Stop: 07/02/17 14:34 Sodium Chloride (Saline Flush) 10 ml FLUSH ONETIME ONE Stop: 07/02/17 14:55 Last Admin: 07/02/17 15:16 Dose: 10 ml Succinylcholine Chloride (Succinylcholine In Ns Pf) Confirm Administered Dose 100 mg .ROUTE .STK-MED ONE Stop: 07/02/17 17:59 - Exam Wound/Incisions: Healing Well GI/Abdominal Exam: Normal Bowel Sounds, Soft, Non-Tender, Other (having flatus) - Problem List Review Problem List Initiated/Reviewed/Updated: Yes - My Orders Last 24 Hours: Active Orders 24 hr Category Date Time Status Patient Status [ADT] Routine ADT 07/02/17 17:51 Active Patient Status [ADT] Stat ADT 07/02/17 19:49 Active Ambulate [RC] TIDAC Care 07/02/17 19:52 Active Incentive Breathing [RT Incentive Spirometry] [] Care 07/02/17 19:53 Active ASDIRECTED NG [Gastrointestinal Tube Mgmt] [RC] 10,16,22,04 Care 07/02/17 19:53 Active Notify Provider [RC] ASDIRECTED Care 07/02/17 19:06 Active Oxygen Therapy [RC] ASDIRECTED Care 07/02/17 19:06 Active Turn, Cough, Deep Breathe [RC] .PRN Care 07/02/17 19:52 Active Vital Signs [RC] Q4HR Care 07/02/17 19:07 Active Clear Liquid Diet [DIET] Diet 07/03/17 Lunch Active Nothing Per Oral Diet [DIET] Diet 07/03/17 Breakfast Active CULTURE BLOOD [BC] Stat Lab 07/02/17 12:20 Received CULTURE BLOOD [BC] Stat Lab 07/02/17 12:25 Received UA W/MICROSCOPIC [URIN] Stat Lab 07/02/17 14:30 Ordered Ibuprofen [Motrin] Med 07/03/17 09:27 Active 600 mg PO QID PRN Lactated Ringers [Ringers, Lactated] 1,000 ml Med 07/03/17 09:30 Ordered IV ASDIRECTED Ondansetron [Zofran] Med 07/02/17 19:56 Active 4 mg IVPUSH Q8H PRN Sodium Chloride 0.9% [Saline Flush] Med 07/02/17 11:50 Active 10 ml FLUSH ASDIRECTED PRN Blood Culture x2 Reflex Set [OM.PC] Stat Oth 07/02/17 11:50 Ordered NG [Nasogastric Orogastric Tube Insertion] [OM.PC] Oth 07/02/17 16:49 Ordered Routine NG [Nasogastric Orogastric Tube Removal] [OM.PC] Ot 07/03/17 09:26 Ordered Routine Peripheral IV Insertion Adult [OM.PC] Routine Oth 07/02/17 11:50 Ordered SCD [Sequential Compression Device] [OM.PC] Routine Oth 07/02/17 19:53 Ordered Schedule Procedure [COMM] Urgent Oth 07/02/17 17:35 Ordered Resuscitation Status Routine Resus Stat 07/03/17 00:06 Ordered Medication Orders Lactated Ringer's (Ringers, Lactated) 1,000 mls @ 50 mls/hr IV ASDIRECTED ILIR Ibuprofen (Motrin) 600 mg PO QID PRN PRN Reason: Pain Ondansetron HCl (Zofran) 4 mg IVPUSH Q8H PRN PRN Reason: Nausea Sodium Chloride (Saline Flush) 10 ml FLUSH ASDIRECTED PRN PRN Reason: Keep Vein Open Last Admin: 07/02/17 12:02 Dose: 10 ml - Plan Plan (Free Text/Narrative):: improving GI function has returned plan DC NG and begin clear liquids and use motrin for pain meds MATE[employer]
--- NOTE | 2017-07-03 09:40 | PCM48HPAN ---
Post Anesthesia Note - EVALUATION WITHIN 48HRS OF ANESTHETIC Vital Signs in Normal Range: Yes Patient Participated in Evaluation: Yes Respiratory Function Stable: Yes Airway Patent: Yes Cardiovascular Function Stable: Yes Hydration Status Stable: Yes Pain Control Satisfactory: Yes Nausea and Vomiting Control Satisfactory: Yes Mental Status Recovered: Yes
--- NOTE | 2017-07-07 07:12 | DISCH ---
ADMISSION DATE: 07/02/2017 DISCHARGE DATE: 07/04/2017 HISTORY: This is a 66-year-old who came in complaining of nausea that started at about 5 in the morning. It woke the patient up on the day of her coming to the ER. She developed some chills. She came into the emergency room, where she was evaluated with CT scan showing a small bowel obstruction. She noted a lump and pain in the right groin. The patient had a robotic-assisted sacropexy on Friday and was discharged on Friday. PHYSICAL EXAMINATION: GENERAL: An alert and cooperative female in moderate distress. VITAL SIGNS: Her temperature was a 100, pulse 102, respirations 20, and blood pressure 180/97. EYES: Unremarkable. NECK: Supple. LUNGS: Clear. HEART: Heart tones regular rate. ABDOMEN: Soft. EXTREMITIES: Upper and lower extremities, no angulation deformities. : The inguinal region shows a swelling in the right groin area with tenderness. IMAGING: CT scan showed femoral hernia, incarcerated small bowel with possible small bowel injury. HOSPITAL COURSE: The patient was brought to the operating room for an emergency procedure. After informed consent was obtained, exploration of the groin was performed, and the small bowel was entrapped in a femoral hernia, which was evaluated and found to be viable. It was reduced and a Romeo-type hernia repair of the femoral hernia was performed. The patient's postoperative course was resolution of small bowel function the next day. NG tube was removed and diet was started. She tolerated this. This was advanced the next day, and she was discharged. At the time of her discharge, she was up and ambulating, tolerating liquid diet, having flatus, abdomen was soft, NG tube was out, and the wound was healing without problem. DISPOSITION: She was discharged home. DISCHARGE MEDICATIONS: She was discharged on Aleve and Tylenol for pain, multivitamins, and a bland diet. FOLLOW-UP: To see me in a week. ACTIVITY: Ambulation, but no heavy lifting, pushing, shoving, or pulling. DIET: [place] diet. FINAL DIAGNOSIS: Small bowel obstruction secondary to incarceration of small bowel in a femoral hernia. PROCEDURE: Exploration of the femoral hernia with repair and reduction of small bowel. CONDITION ON DISCHARGE: Improved. MMODAL /[id number]
== END 2017-07-04 11:52 | disposition home or self-care (01) | DRG 352 ==
LOC: JD.ED 11:24 → JD.SDS 17:29 → JD.MS 19:49 → UNDOADMIN 19:49
PROVIDERS: ADMIT Surgery; ATTEND Surgery
PROC: 0YQ70ZZ Repair Right Femoral Region, Open Approach (ICD-10-PCS; principal; 2017-07-02)
PROC: 0D9670Z Drainage of Stomach with Drainage Device, Via Natural or Artificial Opening (ICD-10-PCS; 2017-07-02)
DX: K41.30 Unilateral femoral hernia, with obstruction, without gangrene, not specified as recurrent (principal); R11.2 Nausea with vomiting, unspecified; R68.83 Chills (without fever); G44.209 Tension-type headache, unspecified, not intractable; R42 Dizziness and giddiness; K59.00 Constipation, unspecified; Z90.710 Acquired absence of both cervix and uterus; R10.31 Right lower quadrant pain; R80.9 Proteinuria, unspecified; R31.9 Hematuria, unspecified
CPT/HCPCS: 36415; 49553; 74019; 74177; 80053; 81001; 83605; 85025; 86140; 87040 ×2; 96365; 96367; 96375; 96376; 99285; C9113; J0330; J0694; J1100; J1200; J2001; J2250; J2405 ×2; J2550; J2765 ×2; J3010; J7050 ×3; J7120 ×3; Q9963; Q9967; 00752; 94760; J2704

== ENCOUNTER 2021-03-05 17:02 | Emergency (ER) | payer MEDICARE, OTHER ==
[2021-03-05] MEDS ORDERED: Sodium Chloride 0.9% 10 ML Syringe FLUSH PRN (17:15)
[2021-03-05] MEDS ORDERED: Aspirin 81 MG Tab.Chew PO ONE (17:15)
[2021-03-05] MEDS ORDERED: Alum Hydrox/Mag Hydrox/Simeth 30 ML, Lidocaine 2% 15 ML PO ONE ×2 (17:35)
[2021-03-05] MEDS ORDERED: Ondansetron 4 MG/2 ML SDV IVPUSH ONE (17:36)
--- NOTE | 2021-03-05 17:58 | EDM.PDOC ---
ED HPI GENERAL MEDICAL PROBLEM - General Chief Complaint: Chest Pain Stated Complaint: CHEST PAIN Time Seen by Provider: 03/05/21 17:16 Source of Information: Reports: Patient, Family History Limitations: Reports: No Limitations - History of Present Illness INITIAL COMMENTS - FREE TEXT/NARRATIVE: 70-year-old female presents the emergency department today with complaints of chest pressure. Patient states that around 1630 today she developed chest pressure after eating a large plate of not shows from [employer]. She states that the pain moves all over her chest and into her back. Denied nausea and vomiting at the time of triage. Patient denies shortness of breath any recent fever, chills or diarrhea. Denies any previous cardiac history. She is not a smoker. Patient states that earlier today she felt just fine. She walked on the treadmill and went to work. However she had not eaten and states she was very hungry and ate her food quite rapidly. Patient did take 2 Tums and waited approximately half an hour prior to coming to the ER when the pain had not resolved. Does admit to having a history of reflux and does take a proton pump inhibitor daily. 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 Musculoskeletal History: Reports: Arthritis, Back Pain, Chronic Neurological History: Reports: None Psychiatric History: Reports: None Endocrine/Metabolic History: Reports: None Hematologic History: Reports: None Dermatologic History: Reports: None - Infectious Disease History Infectious Disease History: Reports: Chicken Pox - Past Surgical History GI Surgical History: Reports: Hernia, Abdominal Other GI Surgeries/Procedures: repaired Female Surgical History: Reports: Other (See Below) Other Female Surgeries/Procedures: repair of pelvic organ prolapse done on Friday Musculoskeletal Surgical History: Reports: None Social & Family History - Family History Family Medical History: No Pertinent Family History Oncologic: Reports: Colon, Pancreatic - Tobacco Use Tobacco Use Status *Q: Never Tobacco User - Caffeine Use Caffeine Use: Reports: Coffee, Tea Other Caffeine Use: 1 cup of coffe/da - Recreational Drug Use Recreational Drug Use: No ED ROS GENERAL - Review of Systems Review Of Systems: Comprehensive ROS is negative, except as noted in HPI. ED EXAM, GENERAL - Physical Exam Exam: See Below Exam Limited By: No Limitations General Appearance: Alert, WD/WN, Moderate Distress Ears: Normal External Exam, Hearing Grossly Normal Nose: Normal Inspection Throat/Mouth: Normal Inspection, Normal Lips, Normal Voice, No Airway Compromise Head: Atraumatic Neck: Normal Inspection, Supple Respiratory/Chest: No Respiratory Distress, Lungs Clear, Normal Breath Sounds, No Accessory Muscle Use, Chest Non-Tender Cardiovascular: Normal Peripheral Pulses, Regular Rate, Rhythm, No Edema, No Murmur Peripheral Pulses: 2+: Radial (L), Radial (R) GI/Abdominal: Normal Bowel Sounds, Soft, Non-Tender, No Distention (Female) Exam: Deferred Rectal (Female) Exam: Deferred Back Exam: Normal Inspection, Full Range of Motion Extremities: Normal Inspection Neurological: Alert, Oriented, Normal Cognition Psychiatric: Anxious Skin Exam: Warm, Dry, Intact, Normal Color, No Rash Lymphatic: No Adenopathy #1 Interpretation EKG Date: 03/05/21 Time: 17:23 Rhythm: NSR Rate (Beats/Min): 68 [place]: Normal P-Wave: Present QRS: Normal ST-T: Normal QT: Normal Comparison: NA - No Prior EKG EKG Interpretation Comments: Per Dr. Traylor interpretation: Sinus rhythm at 68 bpm; borderline prolonged SD interval; left axis deviation Course - Vital Signs Text/Narrative:: As stated above, patient presents with chest pressure radiating all throughout her chest and into her back. Physical exam is essentially unremarkable. Pain is not reproducible. The time of my exam, the patient is nauseated feeling like she has to vomit however is unable to. Will obtain a full cardiac work-up to include labs, chest x-ray and an EKG. We will also medicate the patient with a GI cocktail and some Zofran. SPECT chest discomfort is due to GERD. Last Recorded V/S: Last Vital Signs Temp 97.3 F 03/05/21 17:18 Pulse 69 03/05/21 17:18 Resp 18 03/05/21 17:18 BP 165/84 H 03/05/21 17:18 Pulse Ox 95 03/05/21 17:18 - Orders/Labs/Meds Orders: Active Orders 24 hr Category Date Time Status Cardiac Monitoring [RC] . DIRECTED Care 03/05/21 17:15 Active Oxygen Therapy [RC] ASDIRECTED Care 03/05/21 17:15 Active Sodium Chloride 0.9% [Saline Flush] Med 03/05/21 17:15 Active 10 ml FLUSH ASDIRECTED PRN Peripheral IV Insertion Adult [OM.PC] Stat Oth 03/05/21 17:15 Ordered Medication Orders Sodium Chloride (Sodium Chloride 0.9% 10 Ml Syringe) 10 ml FLUSH ASDIRECTED PRN PRN Reason: Keep Vein Open Last Admin: 03/05/21 18:21 Dose: 10 ml Documented by: REHAN Labs: Laboratory Tests 03/05/21 03/05/21 03/05/21 Range/Units 17:40 17:40 17:40 WBC 5.86 (3.98-10.04) K/mm3 RBC 4.34 (3.98-5.22) M/mm3 Hgb 12.8 (11.2-15.7) gm/dl Hct 39.6 (34.1-44.9) % MCV 91.2 (79.4-94.8) fl MCH 29.5 (25.6-32.2) pg MCHC 32.3 (32.2-35.5) g/dl RDW Std Deviation 44.0 (36.4-46.3) fL Plt Count 217 (182-369) K/mm3 MPV 11.3 (9.4-12.3) fl Neut % (Auto) 46.7 (34.0-71.1) % Lymph % (Auto) 37.9 (19.3-51.7) % [place] % (Auto) 13.3 H (4.7-12.5) % Eos % (Auto) 1.4 (0.7-5.8) Baso % (Auto) 0.5 (0.1-1.2) % Neut # (Auto) 2.74 (1.56-6.13) K/mm3 Lymph # (Auto) 2.22 (1.18-3.74) K/mm3 [place] # (Auto) 0.78 H (0.24-0.36) K/mm3 Eos # (Auto) 0.08 (0.04-0.36) K/mm3 Baso # (Auto) 0.03 (0.01-0.08) K/mm3 PT 10.3 (9.7-12.0) SECONDS INR 0.93 D-Dimer, Quantitative 0.41 (0.19-0.50) mg/L Sodium 138 (136-145) mEq/L Potassium 3.6 (3.5-5.1) mEq/L Chloride 100 (98-107) mEq/L Carbon Dioxide 28 (21-32) mEq/L Anion Gap 13.6 (5-15) BUN 13 (7-18) mg/dL Creatinine 0.8 (0.55-1.02) mg/dL Est Cr Clr Drug Dosing 56.50 mL/min Estimated GFR (MDRD) > 60 (>60) mL/min BUN/Creatinine Ratio 16.3 (14-18) Glucose 103 H (70-99) mg/dL Calcium 8.5 (8.5-10.1) mg/dL Magnesium 1.9 (1.8-2.4) mg/dL Total Bilirubin 0.4 (0.2-1.0) mg/dL AST 38 H (15-37) U/L ALT 20 (14-59) U/L Alkaline Phosphatase 84 (46-116) U/L Troponin I < 0.017 (0.00-0.056) ng/mL Total Protein 7.6 (6.4-8.2) g/dl Albumin 3.6 (3.4-5.0) g/dl Globulin 4.0 gm/dL Albumin/Globulin Ratio 0.9 L (1-2) Meds: Medications Generic Name Dose Route Start Last Admin Trade Name Freq PRN Reason Stop Dose Admin Sodium Chloride 10 ml 03/05/21 17:15 03/05/21 18:21 Sodium Chloride 0.9% 10 Ml Syringe FLUSH 10 ml ASDIRECTED PRN Administration Keep Vein Open Discontinued Medications Generic Name Dose Route Start Last Admin Trade Name Freq PRN Reason Stop Dose Admin Aspirin 324 mg 03/05/21 17:15 03/05/21 18:21 Aspirin 81 Mg Tab.Chew PO 03/05/21 17:16 324 mg ONETIME ONE Administration Al Hydroxide/Mg Hydroxide 30 0 ml 03/05/21 17:35 03/05/21 18:21 ml/ Lidocaine HCl 15 ml PO 03/05/21 17:36 45 ml ONETIME ONE Administration Ondansetron HCl 4 mg 03/05/21 17:36 03/05/21 18:21 Ondansetron 4 Mg/2 Ml Sdv IVPUSH 03/05/21 17:37 4 mg ONETIME ONE Administration - Radiology Interpretation Free Text/Narrative:: Radiologist impression frontal view of the chest: 1. Slight left basilar atelectasis. 2. Heart size is slightly enlarged and other senescent change as noted above. 3. Nothing acute is otherwise seen. - Re-Assessments/Exams Free Text/Narrative Re-Assessment/Exam: 03/05/21 18:41 Hematology is essentially unremarkable, coagulation is unremarkable, chemistry is essentially unremarkable. Troponin is negative. Patient states she is feeling significantly better after receiving GI cocktail and Zofran. She will be discharged home with recommendations that she had a bland diet for the next 24 hours and then advance slowly. Departure - Departure Time of Disposition: 18:43 Disposition: Home, Self-Care 01 Condition: Good Clinical Impression: GERD (gastroesophageal reflux disease) Qualifiers: Esophagitis presence: esophagitis presence not specified Qualified Code(s): K21.9 - Gastro-esophageal reflux disease without esophagitis Instructions: Food Choices for Gastroesophageal Reflux Disease, Adult Referrals: Selvin Dias MD [Primary Care Provider] - Forms: ED Department Discharge Additional Instructions: You were seen in the emergency department with chest pain. Full cardiac work-up was completed to include labs, EKG and a chest x-ray. These were all unremarkable. You also did receive a GI cocktail and Zofran, nausea medication while in the emergency department and this did seem to help the chest discomfort. Chest discomfort was likely due to GERD after eating the nodules this afternoon. Recommend bland diet for the next 24 hours and then advance carefully to normal. Should you continue to have issues with GERD recommend that you follow-up with your primary care provider in the clinic. Sepsis Event Note (ED) - Focused Exam Vital Signs: Vital Signs Temp Pulse Resp BP Pulse Ox 03/05/21 17:18 97.3 F 69 18 165/84 H 95 - My Orders Last 24 Hours: My Active Orders 03/05/21 17:15 Cardiac Monitoring [RC] . DIRECTED Oxygen Therapy [RC] ASDIRECTED Sodium Chloride 0.9% [Saline Flush] 10 ml FLUSH ASDIRECTED PRN Peripheral IV Insertion Adult [OM.PC] Stat - Assessment/Plan Last 24 Hours: My Active Orders 03/05/21 17:15 Cardiac Monitoring [RC] . DIRECTED Oxygen Therapy [RC] ASDIRECTED Sodium Chloride 0.9% [Saline Flush] 10 ml FLUSH ASDIRECTED PRN Peripheral IV Insertion Adult [OM.PC] Stat
--- NOTE | 2021-03-05 18:22 | CR ---
Chest: Frontal view of the chest was obtained. Comparison: No prior chest x-ray is available. Very slight atelectasis is seen within the left lung base. Heart size is mildly enlarged. Tortuous thoracic aorta is seen. Lungs show no acute parenchymal change. Bony structures show nothing acute. Osteopenia is present. Impression: 1. Slight left basilar atelectasis. 2. Heart size is slightly enlarged and other senescent change as noted above. 3. Nothing acute is otherwise seen. Diagnostic code #2
== END 2021-03-05 19:06 | disposition home or self-care (01) ==
LOC: JD.ED 17:02
DX: K21.9 Gastro-esophageal reflux disease without esophagitis (principal); Z79.899 Other long term (current) drug therapy
CPT/HCPCS: 36415; 71045; 80053; 83735; 84484; 85025; 85379; 85610; 93005; 96374; 99285; A9270; J2405; 93010; 99284

== ENCOUNTER 2021-03-06 05:16 | Emergency (ER) | payer MEDICARE, OTHER ==
[2021-03-06] MEDS ORDERED: Sodium Chloride 0.9% 10 ML Syringe FLUSH PRN ×2 (05:52→07:25)
[2021-03-06] MEDS ORDERED: Ondansetron 4 MG/2 ML SDV IVPUSH ONE (05:52)
[2021-03-06] MEDS ORDERED: Sodium Chloride 0.9% 1,000 ML IV SCH (06:00)
[2021-03-06] MEDS ORDERED: HYDROmorphone 0.5 MG/0.5 ML Syringe IVPUSH ONE ×3 (06:16→15:25)
--- NOTE | 2021-03-06 06:26 | EDM.PDOC ---
<Jose Walters Keila - Last Filed: 03/06/21 15:26> ED HPI GENERAL MEDICAL PROBLEM - General Chief Complaint: Abdominal Pain Stated Complaint: ABDOMINAL PAIN Time Seen by Provider: 03/06/21 05:56 - Related Data Allergies Allergy/AdvReac Type Severity Reaction Status Date / Time No Known Allergies Allergy Verified 03/06/21 05:42 Home Meds: Home Meds Pantoprazole 20 mg PO DAILY 03/05/21 [History] Rosuvastatin [Crestor] 10 mg PO DAILY 03/05/21 [History] Course - Re-Assessments/Exams Free Text/Narrative Re-Assessment/Exam: 03/06/21 09:05 are has been assumed sheela Dr Ta at this time. GGT is mildly elevated at 311 but lipase is severely elevated at 29,460. An ultrasound of the gallbladder will be done to look for gallbladder related illness. Further questioning of the patient she indicates that she has had a cyst on her pancreas which is required an ERCP type procedure in [place] 2 years ago to drain the cyst. She has MRIs done almost every 3 months with the last one being done in December which was reported to show the cyst not to be growing at all. She has not had any problems up until the last day or so with her pancreas. At no time as she ever been identified to have gallstones. She is currently having a ultrasound of her gallbladder performed. She indicates the pain is starting to come back and rates it as a 5-6 out of 10. Will repeat Dilaudid 0.5 mg IV. 03/06/21 09:47 Limited ultrasound of the upper abdomen has been obtained. Liver shows no discrete abnormality. Right kidney shows no hydronephrosis or mass. Right kidney has a length of 10.2 cm. Gallbladder contains no shadowing gallstones. No gallbladder wall thickening or biliary duct dilatation is seen. Proximal aorta to be within normal limits. Pancreas is obscured by bowel gas. Inferior vena cava is patent. Main portal vein shows normal hepatopetal flow. No discrete abnormality is appreciated on right upper quadrant abdominal ultrasound 03/06/21 10:21 Urinalysis reveals 1+ proteinuria 1+ occult blood and 2.0 urobilinogen. Leukocyte Estrace was negative there are 10-20 RBCs reported per high-power field. 03/06/21 10:28 I have spoken with Dr. Waldrop--local surgeon has whom has been following her along in terms of her MRI of her abdomen. She is really not had any problems with her choledochal diverticula until admission to [facility] in [place] approximately 2 years ago. Due to her age they elected not to operate on her. She advised me to once again speak with Dr. Boone in regards to today's findings. 03/06/21 11:35: I did speak with the 1 call nurse in [facility] in [place] and she will await the CTs coming by PACS system before she consults --ocn call dam tender assistant. 03/06/21 14:50: I have been informed that CT `s have been recived by [facility] in [place]. I will await call back from the one call nurse. 03/06/21: 15:10: Spoken with --Department of gastroenterology and he is excepted care of this patient. I then spoke with Dr. Baker--hospitalist who will be admitting the patient to the hospital in the [facility]. Patient will be flown to that institution since it is out of reach of our ground ambulance service. Departure - Departure Time of Disposition: 15:40 Disposition: DC/Tfer to Acute Hospital 02 Condition: Fair Clinical Impression: Acute pancreatitis Qualifiers: Pancreatitis type: biliary Acute pancreatitis complication: no infection or necrosis Qualified Code(s): K85.10 - Biliary acute pancreatitis without necrosis or infection - Discharge Information *PRESCRIPTION DRUG MONITORING PROGRAM REVIEWED*: Not Applicable *COPY OF PRESCRIPTION DRUG MONITORING REPORT IN PATIENT KAREN: Not Applicable Referrals: Selvin Dias MD [Primary Care Provider] - Forms: ED Department Discharge Additional Instructions: Diagnosis of acute pancreatitis as a cause of abdominal pain with nausea and vomiting. History of similar type episode 2 years ago treated in [place] due to mass identified within the head of the pancreas. 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 She has been followed by abdominal MRI I believe every 6 months with no enlargement of the mass in the head of the pancreas. Delay in transport was primarily secondary to inability of getting the CT and ultrasound sent to [place] system via PACS due to incompatibility of the systems. It took about 4 hours to get this remedied. Patient be transferred by air ambulance due to inability of our ground ambulance to provide transport back far away a 300 miles. <Devang Ta - Last Filed: 03/08/21 17:07> ED HPI GENERAL MEDICAL PROBLEM - General Source of Information: Reports: Patient, Family (Daughter) History Limitations: Reports: No Limitations - History of Present Illness INITIAL COMMENTS - FREE TEXT/NARRATIVE: Mrs. Martinez is a pleasant 70-year-old woman who now presents the ED with upper abdominal pain, nausea, and some vomiting that began around 20:00 to 21:00 last night. She describes the pain as sharp and cramping in character, and states that it is constant. She has not identified any modifiers. She states that she has had similar symptoms numerous times over the past 2 years, and has been told that it is due to multiple hernias that she has, and that there is not much that can be done. Her daughter mentioned that the patient has suffered small bowel obstructions in the past, requiring surgery. Prior episodes, however, have not been as persistent. The patient has not taken any [id number] or home remedies since the onset of her symptoms. Medical records indicate that the patient was seen in this ED last night for complaint of chest pressure that began around 16:30 yesterday afternoon, after eating a large plate of nachos from [employer]. Work-up included a CBC, CMP, magnesium level, troponin, D-dimer, PT/INR, a portable chest x-ray, and an ECG, all of which were unremarkable. Her symptoms improved after she was given a GI cocktail and IV Zofran. The patient states that she has not eaten anything since 16:30 yesterday. At triage this morning, the patient's initial BP was found to be elevated 166 /98, otherwise, she was hemodynamically stable, afebrile, saturating 95% on room air. She appears to be relatively comfortable, in no acute distress. Prior to yesterday afternoon, the patient denies having a recent fever, chills, sore throat, ear pain, nasal or sinus congestion, cough, dyspnea, chest pain, palpitations, nausea, vomiting, constipation, diarrhea, abdominal pain, urinary symptoms, recent weight gain or weight loss, recent bloody bowel movements or black bowel movements, recent joint aches, headaches, or rashes. I reviewed the PMHx/PSHx/SocHx, which was reviewed with the patient by the RN. The patient's PCP is Dr. Selvin Dias. She has received 2 Pfizer COVID vaccinations, although no influenza vaccination this season. Abdominal Pain Score (Numeric/FACES): 10 Past Medical History Gastrointestinal History: Reports: GERD Musculoskeletal History: Reports: Osteoarthritis - Infectious Disease History Infectious Disease History: Reports: Chicken Pox - Past Surgical History GI Surgical History: Reports: Hernia, Abdominal (multiple) Female Surgical History: Reports: Other (See Below) (Repair of pelvic prolapse) Social & Family History - Tobacco Use Tobacco Use Status *Q: Never Tobacco User - Caffeine Use Caffeine Use: Reports: Coffee, Tea Other Caffeine Use: 1 cup of coffe/da ED ROS GENERAL - Review of Systems Review Of Systems: Comprehensive ROS is negative, except as noted in HPI. ED EXAM, GI/ABD - Physical Exam Exam: See Below Exam Limited By: No Limitations General Appearance: Alert, WD/WN, No Apparent Distress Eyes: Bilateral: Normal Appearance, EOMI Ears: Normal External Exam, Hearing Grossly Normal Nose: Normal Inspection Throat/Mouth: Normal Inspection, Normal Lips, Normal Voice, No Airway Compromise Head: Atraumatic, Normocephalic Neck: Normal Inspection, Full Range of Motion Respiratory/Chest: No Respiratory Distress, Lungs Clear, Normal Breath Sounds, No Accessory Muscle Use Cardiovascular: Normal Peripheral Pulses, Regular Rate, Rhythm, No Edema, No Gallop, No JVD, No Murmur, No Rub GI/Abdominal Exam: Soft, No Organomegaly, No Distention, No Abnormal Bruit, No Mass, Tender (to the entire abdomen), Abnormal Bowel Sounds (absent), Other (Numerous well-healed surgical scars) Back Exam: Normal Inspection, Full Range of Motion, NT Extremities: Normal Inspection, Normal Range of Motion, No Pedal Edema, Normal Capillary Refill Neurological: Alert, Oriented, Normal Cognition Psychiatric: Normal Affect Skin Exam: Warm, Dry, Intact, Normal Color, No Rash Course - Vital Signs Last Recorded V/S: Last Vital Signs Temp 36.9 C 03/06/21 15:46 Pulse 74 03/06/21 15:46 Resp 16 03/06/21 15:46 BP 191/94 H 03/06/21 15:46 Pulse Ox 96 03/06/21 15:46 - Orders/Labs/Meds Labs: Laboratory Tests 03/06/21 03/06/21 03/06/21 Range/Units 05:40 05:40 05:40 WBC 7.72 (3.98-10.04) K/mm3 RBC 4.80 (3.98-5.22) M/mm3 Hgb 14.0 (11.2-15.7) gm/dl Hct 43.0 (34.1-44.9) % MCV 89.6 (79.4-94.8) fl MCH 29.2 (25.6-32.2) pg MCHC 32.6 (32.2-35.5) g/dl RDW Std Deviation 43.8 (36.4-46.3) fL Plt Count 238 (182-369) K/mm3 MPV 11.5 (9.4-12.3) fl Neut % (Auto) 76.5 H (34.0-71.1) % Lymph % (Auto) 15.5 L (19.3-51.7) % [place] % (Auto) 7.5 (4.7-12.5) % Eos % (Auto) 0.3 L (0.7-5.8) Baso % (Auto) 0.1 (0.1-1.2) % Neut # (Auto) 5.90 (1.56-6.13) K/mm3 Lymph # (Auto) 1.20 (1.18-3.74) K/mm3 [place] # (Auto) 0.58 H (0.24-0.36) K/mm3 Eos # (Auto) 0.02 L (0.04-0.36) K/mm3 Baso # (Auto) 0.01 (0.01-0.08) K/mm3 Manual Slide Review Normal smear Sodium 137 (136-145) mEq/L Potassium 4.0 (3.5-5.1) mEq/L Chloride 102 (98-107) mEq/L Carbon Dioxide 25 (21-32) mEq/L Anion Gap 14.0 (5-15) BUN 11 (7-18) mg/dL Creatinine 0.7 (0.55-1.02) mg/dL Est Cr Clr Drug Dosing TNP Estimated GFR (MDRD) > 60 (>60) mL/min BUN/Creatinine Ratio 15.7 (14-18) Glucose 134 H (70-99) mg/dL Calcium 8.8 (8.5-10.1) mg/dL Magnesium 2.0 (1.8-2.4) mg/dL Total Bilirubin 1.3 H (0.2-1.0) mg/dL GGT 311 H (5-55) U/L AST 766 H (15-37) U/L ALT 395 H (14-59) U/L Alkaline Phosphatase 173 H (46-116) U/L C-Reactive Protein <0.2 (<1.0) mg/dL Total Protein 7.6 (6.4-8.2) g/dl Albumin 3.7 (3.4-5.0) g/dl Globulin 3.9 gm/dL Albumin/Globulin Ratio 1.0 (1-2) Lipase 24187 H (73-393) U/L Urine Color (Yellow) Urine Appearance (Clear) Urine pH (5.0-8.0) Ur Specific [place] (1.005-1.030) Urine Protein (Negative) Urine Glucose (UA) (Negative) Urine Ketones (Negative) Urine Occult Blood (Negative) Urine Nitrite (Negative) Urine Bilirubin (Negative) Urine Urobilinogen (0.2-1.0) Ur Leukocyte Esterase (Negative) Urine RBC (0-5) /hpf Urine WBC (0-5) /hpf Ur Squamous Epith Cells (0-5) /hpf Urine Bacteria (FEW) /hpf Urine Mucus (FEW) /hpf SARS-CoV-2 RNA (ADRIANA) (NEGATIVE) 03/06/21 03/06/21 Range/Units 06:26 08:25 WBC (3.98-10.04) K/mm3 RBC (3.98-5.22) M/mm3 Hgb (11.2-15.7) gm/dl Hct (34.1-44.9) % MCV (79.4-94.8) fl MCH (25.6-32.2) pg MCHC (32.2-35.5) g/dl RDW Std Deviation (36.4-46.3) fL Plt Count (182-369) K/mm3 MPV (9.4-12.3) fl Neut % (Auto) (34.0-71.1) % Lymph % (Auto) (19.3-51.7) % [place] % (Auto) (4.7-12.5) % Eos % (Auto) (0.7-5.8) Baso % (Auto) (0.1-1.2) % Neut # (Auto) (1.56-6.13) K/mm3 Lymph # (Auto) (1.18-3.74) K/mm3 [place] # (Auto) (0.24-0.36) K/mm3 Eos # (Auto) (0.04-0.36) K/mm3 Baso # (Auto) (0.01-0.08) K/mm3 Manual Slide Review Sodium (136-145) mEq/L Potassium (3.5-5.1) mEq/L Chloride (98-107) mEq/L Carbon Dioxide (21-32) mEq/L Anion Gap (5-15) BUN (7-18) mg/dL Creatinine (0.55-1.02) mg/dL Est Cr Clr Drug Dosing Estimated GFR (MDRD) (>60) mL/min BUN/Creatinine Ratio (14-18) Glucose (70-99) mg/dL Calcium (8.5-10.1) mg/dL Magnesium (1.8-2.4) mg/dL Total Bilirubin (0.2-1.0) mg/dL GGT (5-55) U/L AST (15-37) U/L ALT (14-59) U/L Alkaline Phosphatase (46-116) U/L C-Reactive Protein (<1.0) mg/dL Total Protein (6.4-8.2) g/dl Albumin (3.4-5.0) g/dl Globulin gm/dL Albumin/Globulin Ratio (1-2) Lipase (73-393) U/L Urine Color Yellow (Yellow) Urine Appearance Clear (Clear) Urine pH 6.5 (5.0-8.0) Ur Specific [place] 1.020 (1.005-1.030) Urine Protein 1+ H (Negative) Urine Glucose (UA) Negative (Negative) Urine Ketones Negative (Negative) Urine Occult Blood 1+ H (Negative) Urine Nitrite Negative (Negative) Urine Bilirubin Negative (Negative) Urine Urobilinogen 2.0 H (0.2-1.0) Ur Leukocyte Esterase Negative (Negative) Urine RBC 10-20 H (0-5) /hpf Urine WBC 0-5 (0-5) /hpf Ur Squamous Epith Cells 0-5 (0-5) /hpf Urine Bacteria Few (FEW) /hpf Urine Mucus Few (FEW) /hpf SARS-CoV-2 RNA (ADRIANA) Negative (NEGATIVE) Meds: Medications Discontinued Medications Generic Name Dose Route Start Last Admin Trade Name Asimq PRN Reason Stop Dose Admin Diatrizoate Meglum/Diatrizoate Sod 120 ml 03/06/21 07:25 03/06/21 07:37 Diatrizoate Meglumine/Diatrizoate Sodium 37% 120 Ml Bottle PO 03/06/21 07:26 45 ml ONETIME ONE Administration Hydromorphone HCl 0.5 mg 03/06/21 06:16 03/06/21 06:21 Hydromorphone 0.5 Mg/0.5 Ml Syringe IVPUSH 03/06/21 06:17 0.5 mg ONETIME ONE Administration Hydromorphone HCl 0.5 mg 03/06/21 09:10 03/06/21 09:27 Hydromorphone 0.5 Mg/0.5 Ml Syringe IVPUSH 03/06/21 09:11 0.5 mg ONETIME ONE Administration Hydromorphone HCl 0.5 mg 03/06/21 15:25 03/06/21 15:34 Hydromorphone 0.5 Mg/0.5 Ml Syringe IVPUSH 03/06/21 15:26 0.5 mg ONETIME ONE Administration Sodium Chloride 1,000 mls @ 150 mls/hr 03/06/21 06:00 03/06/21 06:03 Normal Saline IV 150 mls/hr ASDIRECTED ILIR Administration Dextrose/Sodium Chloride 1,000 mls @ 500 mls/hr 03/06/21 15:30 03/06/21 15:37 Dextrose 5%-Normal Saline IV 500 mls/hr ASDIRECTED ILIR Administration Iopamidol 100 ml 03/06/21 07:25 03/06/21 07:37 Iopamidol 612 Mg/Ml 100 Ml Bottle IVPUSH 03/06/21 07:26 100 ml ONETIME ONE Administration Metoclopramide HCl 7.5 mg 03/06/21 15:25 03/06/21 15:32 Metoclopramide 10 Mg/2 Ml Sdv IVPUSH 03/06/21 15:26 7.5 mg ONETIME ONE Administration Ondansetron HCl 4 mg 03/06/21 05:52 03/06/21 06:03 Ondansetron 4 Mg/2 Ml Sdv IVPUSH 03/06/21 05:53 4 mg ONETIME ONE Administration Sodium Chloride 10 ml 03/06/21 05:52 03/06/21 06:03 Sodium Chloride 0.9% 10 Ml Syringe FLUSH 10 ml ASDIRECTED PRN Administration Keep Vein Open Sodium Chloride 10 ml 03/06/21 07:25 03/06/21 07:37 Sodium Chloride 0.9% 10 Ml Syringe FLUSH 10 ml ONETIME PRN Administration IV FLUSH - Re-Assessments/Exams Free Text/Narrative Re-Assessment/Exam: 03/06/21 06:16 Numerous blood tests and a urinalysis were ordered at triage. I have added a CT of the abdomen and pelvis with oral and IV contrast, primarily to evaluate for a small bowel obstruction, as she has no audible bowel sounds follow-up with the ENT Dr. Blanco Jean at the next available appointment. Tender to her entire abdomen. In the event that she needs to be admitted, go to the operating room, or be transferred, I have also ordered a swab for the SARS-CoV-2 virus. IV fluid and IV Zofran were ordered at triage. I have added some IV Dilaudid. 03/06/21 08:14 The patient's CBC is unremarkable. Her CMP is remarkable for mild hyperglycemia of 134, a TBil slightly elevated at 1.3, and AST/ALT elevated at 766/395, respectively, and an alkaline phosphatase mildly elevated at 173, with remainder of her CMP being unremarkable. Her magnesium level is within normal limits at 2.0. Her CRP is undetectably low. CT of the abdomen and pelvis with oral and IV contrast is read by Dr. Napoles as: 1. 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 No findings of colonic obstruction are seen. This hernia is an interval change from prior exam. 2. Slight increased stool within the colon is noted. 3. Small hiatal hernia seen which contains contrast. 4. No other acute abnormality is seen on CT study of the abdomen and pelvis. No findings of small bowel obstruction are seen. Results of the patient's lipase is still pending. She has not yet provided a urine sample for the urinalysis. 03/06/21 08:41 Notified by lab that the patient's lipase is very high. They are diluting the sample, but are aware that it is over 20,000. I will order an ultrasound of the right upper quadrant. Case discussed with Dr. Walters, and care of the patient turned over to him at this time, for change of shift. Sepsis Event Note (ED) - Evaluation Sepsis Screening Result: No Definite Risk
[2021-03-06] MEDS ORDERED: Diatrizoate Meglumine/Diatrizoate Sodium 37% 120 ML Bottle PO ONE (07:25)
[2021-03-06] MEDS ORDERED: Iopamidol 612 MG/ML 100 ML Bottle IVPUSH ONE (07:25)
--- NOTE | 2021-03-06 08:10 | CT ---
CT abdomen and pelvis Technique: Multiple axial sections were obtained from above the dome of the diaphragm inferiorly through the pubic symphysis. Intravenous and oral contrast were utilized. Delayed images were obtained. Reconstructed coronal and sagittal images were also obtained. Comparison: Prior CT abdomen and pelvis exam of 07/02/17. Findings: There is a spigelian hernia being seen on the right side. This spigelian hernia contains a loop of stool filled colon. No colonic dilatation is seen to indicate a discrete obstruction. This finding is an interval change from prior study. Visualized lung bases show nothing acute. Liver contains no focal abnormality. Spleen size is normal. Small hiatal hernia is seen which contains contrast. Adrenal glands show no nodule. Kidneys show symmetric contrast enhancement. No hydronephrosis or mass is seen. Delayed images show contrast within the ureters and the bladder. Abdominal aorta shows no aneurysm. Slight atherosclerotic calcification is seen. No retroperitoneal adenopathy is seen. No mesenteric abnormality is noted. No pelvic mass or adenopathy is seen. Appendix is not seen. Mild increased stool is seen throughout the colon. No small bowel dilatation is seen. Bone window settings were reviewed which show severe disc space narrowing at L2-3 and L3-4 with vacuum phenomena. Scattered endplate osteophytes are also noted within the visualized spine. Impression: 1. 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 No findings of colonic obstruction are seen. This hernia is an interval change from prior exam. 2. Slight increased stool within the colon is noted. 3. Small hiatal hernia is seen which contains contrast. 4. No other acute abnormality is seen on CT study of the abdomen and pelvis. No findings of small bowel obstruction are seen. Diagnostic code #3
--- NOTE | 2021-03-06 09:41 | US ---
Limited abdominal ultrasound: Multiple real-time images were obtained of the upper right abdomen. Comparison: Prior CT abdomen and pelvis exam performed earlier on the same day (7:29 AM) Findings: Liver shows no discrete abnormality. Right kidney shows no hydronephrosis or mass. Right kidney has a length of 10.2 cm. Gallbladder contains no shadowing gallstones. No gallbladder wall thickening or biliary duct dilatation is seen. Proximal aorta appears within normal limits. Pancreas is obscured by bowel gas. Inferior vena cava is patent. Main portal vein shows normal hepatopetal flow. Impression: 1. No discrete abnormality is appreciated on right upper quadrant abdominal ultrasound. 2. If patient remains symptomatic, follow-up study in 48 hours is recommended. Diagnostic code #1
[2021-03-06] MEDS ORDERED: Metoclopramide 10 MG/2 ML SDV IVPUSH ONE (15:25)
[2021-03-06] MEDS ORDERED: Dextrose 5%-0.9% NaCl 1,000 ML IV SCH (15:30)
== END 2021-03-06 15:46 ==
LOC: JD.ED 05:16
DX: K85.10 Biliary acute pancreatitis without necrosis or infection (principal); K21.9 Gastro-esophageal reflux disease without esophagitis; Z79.899 Other long term (current) drug therapy; Z20.822 Contact with and (suspected) exposure to COVID-19
CPT/HCPCS: 36415; 74177; 76705; 80053; 81001; 82977; 83690; 83735; 85025; 86140; 96374; 96375; 96376; 99285; J1170; J2405; J2765; J7030; J7042; Q9963; Q9967; U0002

== ENCOUNTER 2022-10-13 19:41 | Inpatient (IN) | payer MEDICARE, OTHER ==
[2022-10-13] MEDS ORDERED: Ondansetron 4 MG/2 ML SDV IVPUSH ONE (21:07)
[2022-10-13] MEDS ORDERED: HYDROmorphone 1 MG/ML Syringe IVPUSH STA (21:07)
[2022-10-13] MEDS ORDERED: Sodium Chloride 0.9% 1,000 ML IV SCH (21:15)
[2022-10-13 21:25] LABS: HEMATOCRIT 41.7 % (34.1-44.9); HEMOGLOBIN 13.6 gm/dl (11.2-15.7); MEAN CORPUSCULAR HEMOGLOBIN 30.3 pg (25.6-32.2); MEAN CORPUSCULAR HGB CONC 32.6 g/dl (32.2-35.5); MEAN CORPUSCULAR VOLUME 92.9 fl (79.4-94.8); MEAN PLATELET VOLUME 11.9 fl (9.4-12.3); PLATELET COUNT,PLT 276 K/mm3 (182-369); RED BLOOD CELL COUNT 4.49 M/mm3 (3.98-5.22); WHITE BLOOD CELL COUNT,WBC 11.32 K/mm3 (3.98-10.04)
[2022-10-13 21:45] LABS: A/G RATIO 0.9 (1-2); ALBUMIN 3.8 g/dl (3.4-5.0); ANION GAP 12.8 (5-15); BILIRUBIN TOTAL 0.3 mg/dL (0.2-1.0); BUN/CREATININE RATIO 23.3 (14-18); CALCIUM 9.1 mg/dL (8.5-10.1); CREATININE 0.9 mg/dL (0.55-1.02); EST CRCL DRUG DOSING (CG) 51.59 mL/min; POTASSIUM,K 3.8 mEq/L (3.5-5.1); PROTEIN TOTAL,TP 8.1 g/dl (6.4-8.2)
[2022-10-13 21:50] LABS: BAND PERCENT MAN 0 % (0-10); BASOPHILS PERCENT MAN 2 (0.1-1.2); EOSINOPHILS PERCENT MAN 0 % (0.7-5.8); LYMPHOCYTES % ATYPICAL MANUAL 0 %; LYMPHOCYTES PERCENT MAN 16 % (20-40); MONOCYTES PERCENT MAN 3 % (2-10); PLATELET COUNT ESTIMATE ADEQUATE
[2022-10-13] MEDS ORDERED: Iopamidol 612 MG/ML 100 ML Bottle IVPUSH ONE (22:11)
[2022-10-14] MEDS ORDERED: Morphine 2 MG/ML SYRINGE IVPUSH PRN (01:08)
[2022-10-14] MEDS ORDERED: Ketorolac 15 MG/ML SDV IVPUSH PRN (01:08)
[2022-10-14 01:50] LABS: APPEARANCE,URINE CLEAR (Clear); BILIRUBIN,URINE NEGATIVE (Negative); COLOR,URINE YELLOW (Yellow); GLUCOSE,URINE NEGATIVE (Negative); KETONES,URINE NEGATIVE (Negative); LEUKOCYTE ESTERASE,URINE NEGATIVE (Negative); NITRITE,URINE NEGATIVE (Negative); OCCULT BLOOD,URINE TRACE-INTACT (Negative); PH,URINE 6.5 (5.0-8.0); PROTEIN,URINE NEGATIVE (Negative); UROBILINOGEN,URINE 0.2 (0.2-1.0)
[2022-10-14] MEDS: ceFAZolin 2 GM in Sodium Chloride 0.9% 50 ML IV SCH ×3 (01:50→16:47)
[2022-10-14 02:02] LABS: BACTERIA,URINE RARE /hpf (FEW); MUCUS,URINE NOT SEEN /hpf (FEW); SQUAMOUS EPITHELIAL CELLS,UR 0-5 /hpf (0-5); WBC,URINE 0-5 /hpf (0-5)
[2022-10-14] MEDS: metroNIDAZOLE/Normal Saline 500 MG in Premix Bag 1 BAG IV SCH ×3 (02:16→17:32)
[2022-10-14] MEDS: Lactated Ringers 1,000 ML IV SCH ×2 (02:18→17:25)
[2022-10-14] MEDS ORDERED: Ondansetron 4 MG/2 ML SDV IVPUSH PRN (05:00)
[2022-10-14] MEDS: Famotidine 20 MG/2 ML SDV IV SCH (09:07)
[2022-10-14] MEDS ORDERED: Lidocaine 1% 8 ML ONE (11:09)
[2022-10-14] MEDS ORDERED: fentaNYL 250 MCG/5 ML SDV ONE (11:09)
[2022-10-14] MEDS ORDERED: Propofol 200 MG/20 ML SDV ONE (11:09)
[2022-10-14] MEDS ORDERED: Midazolam 1 MG/ML 2 ML SDV ONE (11:09)
[2022-10-14] MEDS ORDERED: Lidocaine 1% 30 ML SDV ONE (11:11)
[2022-10-14] MEDS ORDERED: Bupivacaine 0.5%/EPINEPHrine 1:200,000 50 ML MDV ONE (11:11)
[2022-10-14] MEDS ORDERED: Succinylcholine 200 MG/10 ML MDV ONE (11:34)
[2022-10-14] MEDS ORDERED: Neostigmine Methylsulfate 10 MG/10 ML MDV ONE (11:39)
[2022-10-14] MEDS ORDERED: Lactated Ringers 1,000 ML ONE ×2 (11:49→13:32)
[2022-10-14] MEDS ORDERED: Ondansetron 4 MG/2 ML SDV ONE (12:15)
[2022-10-14] MEDS ORDERED: HYDROmorphone 0.5 MG/0.5 ML Syringe IVPUSH PRN ×2 (12:30→14:39)
[2022-10-14] MEDS ORDERED: fentaNYL 100 MCG/2 ML SDV IVPUSH PRN (12:30)
[2022-10-14] MEDS ORDERED: ceFAZolin 1 GM Vial ONE (12:59)
[2022-10-14] MEDS ORDERED: Naloxone 0.4 MG/ML SDV IVPUSH PRN (14:39)
[2022-10-14] MEDS: Ketorolac 30 MG/ML SDV IVPUSH SCH ×2 (15:56→21:24)
[2022-10-15] MEDS: ceFAZolin 2 GM in Sodium Chloride 0.9% 50 ML IV SCH ×3 (00:43→17:25)
[2022-10-15] MEDS: metroNIDAZOLE/Normal Saline 500 MG in Premix Bag 1 BAG IV SCH ×3 (01:51→16:23)
[2022-10-15] MEDS: Lactated Ringers 1,000 ML IV SCH ×3 (01:53→18:09)
[2022-10-15] MEDS: Ketorolac 30 MG/ML SDV IVPUSH SCH ×4 (03:19→21:52)
[2022-10-15] MEDS: Famotidine 20 MG/2 ML SDV IV SCH (08:45)
[2022-10-15] MEDS: Acetaminophen 325 MG Tab PO PRN ×2 (13:12→22:10)
[2022-10-16] MEDS: ceFAZolin 2 GM in Sodium Chloride 0.9% 50 ML IV SCH ×2 (00:20→09:20)
[2022-10-16] MEDS: metroNIDAZOLE/Normal Saline 500 MG in Premix Bag 1 BAG IV SCH ×2 (00:38→10:03)
[2022-10-16] MEDS: Lactated Ringers 1,000 ML IV SCH ×2 (03:54→12:31)
[2022-10-16] MEDS: Ketorolac 30 MG/ML SDV IVPUSH SCH ×3 (03:54→15:20)
[2022-10-16] MEDS: Famotidine 20 MG/2 ML SDV IV SCH (09:16)
== END 2022-10-16 17:05 | disposition home or self-care (01) | DRG 354 ==
LOC: JD.ED 19:41 → JD.MS 10-14 00:58
PROVIDERS: ADMIT Specialist; ATTEND Specialist
PROC: 0WUF0JZ Supplement Abdominal Wall with Synthetic Substitute, Open Approach (ICD-10-PCS; principal; 2022-10-14)
PROC: 0BH17EZ Insertion of Endotracheal Airway into Trachea, Via Natural or Artificial Opening (ICD-10-PCS; 2022-10-14)
DX: K43.0 Incisional hernia with obstruction, without gangrene (principal); K56.609 Unspecified intestinal obstruction, unspecified as to partial versus complete obstruction; E78.00 Pure hypercholesterolemia, unspecified; K21.9 Gastro-esophageal reflux disease without esophagitis; M19.90 Unspecified osteoarthritis, unspecified site; E55.9 Vitamin D deficiency, unspecified; R73.9 Hyperglycemia, unspecified; Z90.710 Acquired absence of both cervix and uterus; Z98.890 Other specified postprocedural states; Z90.49 Acquired absence of other specified parts of digestive tract; Z90.722 Acquired absence of ovaries, bilateral; Z79.899 Other long term (current) drug therapy
CPT/HCPCS: 36415; 74177; 80053; 83690; 85007; 85027; 96361 ×2; 96374; 96375; 99285; J1170; J2405; J7030; Q9967; 00840; 81001; 82947; 87641; 94762; 99100; A9270-GY; C1781; J0330; J0690; J1885; J2250; J2704; J2710; J3010; J3490; J7120